=== PATIENT | male | born 1945 | race Hispanic/Latino ===

== ENCOUNTER 2017-09-29 10:32 | Observation (INO) | payer MEDICARE ==
[2017-09-29] MEDS ORDERED: Aspirin 325 mg EC Tablets PO STA (11:56)
[2017-09-29] MEDS ORDERED: Aspirin 325 mg EC Tablets PO ONE (12:04)
[2017-09-29 12:07] LABS: BASO # 0.1 K/uL (0.0-0.2); BASO % 1.2 % (0.0-2.0); EOS # 0.2 K/uL (0.0-0.7); EOS % 2.9 % (0.0-4.0); HEMATOCRIT 38.5 % (35.0-51.0); LYMPH # 1.6 K/uL (1.0-4.3); MEAN CELL VOLUME 87.6 fL (80.0-94.0); MEAN CORPUSCULAR HEMOGLOBIN 30.5 pg (27.0-31.0); MEAN CORPUSCULAR HGB CONC 34.8 g/dL (33.0-37.0); MEAN PLATELET VOLUME 8.1 fL (7.2-11.7); MONO # 0.7 K/uL (0.0-0.8); NRBC % 0.1 % (0.0-2.0); RED CELL DISTRIBUTION WIDTH 13.7 % (11.5-14.5); WHITE BLOOD COUNT 7.6 K/uL (4.8-10.8)
[2017-09-29 12:21] LABS: ALKALINE PHOSPHATASE 74 U/L (38-126); ALT/SGPT 36 U/L (21-72); AST/SGOT 24 U/L (17-59); BILIRUBIN,TOTAL 0.8 mg/dL (0.2-1.3); BLOOD UREA NITROGEN 19 mg/dL (9-20); CALCIUM 8.6 mg/dl (8.6-10.4); CARBON DIOXIDE 23 mmol/L (22-30); CHLORIDE 103 mmol/L (98-107); GFR AFRICAN-AMERICAN > 60; GLUCOSE,RANDOM 107 mg/dL (75-110); POTASSIUM 3.6 mmol/L (3.6-5.2); SODIUM 135 mmol/L (132-148); TOTAL PROTEIN 6.2 g/dL (6.3-8.3)
[2017-09-29 12:22] LABS: ALB/GLOB RATIO 1.8 (1.0-2.1)
--- NOTE | 2017-09-29 13:03 | C.PDOC ---
History Of Present Illness 72-year-old male, presents to the emergency department with complaints of chest discomfort for the past few days. Pain is non-radiating and intermittent in nature. States he was seen by his nut packer on 09/23. Denies nausea/vomiting , numbness/weakness, tingling, fevers, shortness of breath, or any other associated symptoms. No other complaints at this time. Time Seen by Provider: 09/29/17 11:18 Chief Complaint (Nursing): Chest Pain History Per: Patient History/Exam Limitations: no limitations Past Medical History Reviewed: Historical Data, Nursing Documentation, Vital Signs Vital Signs: Last Vital Signs Temp 87 F L 09/29/17 10:39 Pulse 63 09/29/17 12:05 Resp 10 L 09/29/17 12:05 BP 112/69 09/29/17 12:06 Pulse Ox 96 09/29/17 13:23 - Medical History PMH: HTN, Hypercholesterolemia, Sleep Apnea Family History: States: No Known Family Hx - Social History Hx Alcohol Use: No Hx Substance Use: No - Immunization History Hx Tetanus Toxoid Vaccination: No Hx Influenza Vaccination: No Hx Pneumococcal Vaccination: No Review Of Systems Except As Marked, All Systems Reviewed And Found Negative. Constitutional: Negative for: Fever, Chills Cardiovascular: Positive for: Chest Pain. Negative for: Palpitations Respiratory: Negative for: Shortness of Breath Gastrointestinal: Negative for: Nausea, Vomiting Musculoskeletal: Negative for: Back Pain Neurological: Negative for: Weakness, Numbness, Headache, Dizziness Physical Exam - Physical Exam Appears: Non-toxic, No Acute Distress Skin: Warm, Dry, No Rash Nose: Normal Oral Mucosa: Moist Lips: Normal Appearing Neck: Normal ROM Chest: Symmetrical Cardiovascular: Rhythm Regular, No Murmur Respiratory: Normal Breath Sounds, No Accessory Muscle Use Gastrointestinal/Abdominal: Soft, No Tenderness Extremity: Normal ROM Neurological/Psych: Oriented x3, Normal Speech ED Course And Treatment - Laboratory Results Result Diagrams: 09/29/17 12:02 09/29/17 12:02 O2 Sat by Pulse Oximetry: 96 (on RA) Pulse Ox Interpretation: Normal Medical Decision Making Medical Decision Making: Plan: * EKG * Labs * Aspirin, Nitro * Reassess and Disposition Disposition - Disposition Forms: [employer] ([place]ican) - Scribe Statement The provider has reviewed the documentation as recorded by the Scribe (Madhu Gallegos) All medical record entries made by the Rayaibann marie were at my direction and personally dictated by me. I have reviewed the chart and agree that the record accurately reflects my personal performance of the history, physical exam, medical decision making, and the department course for this patient. I have also personally directed, reviewed, and agree with the discharge instructions and disposition.
--- NOTE | 2017-09-29 13:52 | C.PDOC ---
History Of Present Illness 72-year-old male, presents to the emergency department with complaints of chest discomfort for the past few days. Pain is non-radiating and intermittent in nature. States he was seen by his medical sonographer on 09/23, but the symptoms continued since then. Denies nausea/vomiting, numbness/weakness, tingling, fevers, shortness of breath, or any other associated symptoms. No other complaints at this time. Time Seen by Provider: 09/29/17 11:18 Chief Complaint (Nursing): Chest Pain History Per: Patient History/Exam Limitations: no limitations Onset/Duration Of Symptoms: Days Current Symptoms Are (Timing): Still Present Severity: Moderate Exacerbating Factors: None Recent travel outside of the [place]: No Past Medical History Reviewed: Historical Data, Nursing Documentation, Vital Signs Vital Signs: Last Vital Signs Temp 87 F L 09/29/17 10:39 Pulse 49 L 09/29/17 14:22 Resp 17 09/29/17 14:22 BP 121/73 09/29/17 14:22 Pulse Ox 99 09/29/17 14:22 - Medical History PMH: HTN, Hypercholesterolemia, Sleep Apnea Family History: States: No Known Family Hx - Social History Hx Alcohol Use: No Hx Substance Use: No - Immunization History Hx Tetanus Toxoid Vaccination: No Hx Influenza Vaccination: No Hx Pneumococcal Vaccination: No Review Of Systems Except As Marked, All Systems Reviewed And Found Negative. Constitutional: Negative for: Fever, Chills Cardiovascular: Positive for: Chest Pain. Negative for: Palpitations Respiratory: Negative for: Shortness of Breath Gastrointestinal: Negative for: Nausea, Vomiting Musculoskeletal: Negative for: Back Pain Neurological: Negative for: Weakness, Numbness, Headache, Dizziness Physical Exam - Physical Exam Appears: Non-toxic, No Acute Distress Skin: Warm, Dry, No Rash Head: Atraumatic, Normacephalic Eye(s): bilateral: Normal Inspection, PERRL, EOMI Nose: Normal Oral Mucosa: Moist Lips: Normal Appearing Throat: No Erythema, No Exudate Neck: Normal ROM, Supple Chest: Symmetrical, No Deformity, No Tenderness Cardiovascular: Rhythm Regular, No Friction Rub, No Murmur Respiratory: Normal Breath Sounds, No Accessory Muscle Use, No Rales, No Rhonchi , No Wheezing Gastrointestinal/Abdominal: Soft, No Tenderness Back: Normal Inspection, No CVA Tenderness, No Vertebral Tenderness Extremity: Normal ROM, No Swelling Neurological/Psych: Oriented x3, Normal Speech, Normal Motor, Normal Sensation Gait: Steady ED Course And Treatment - Laboratory Results Result Diagrams: 09/29/17 12:02 09/29/17 12:02 ECG: Interpreted By Me ECG Rhythm: Sinus Rhythm, Sinus Bradycardia ECG Interpretation: Normal Rate From EC O2 Sat by Pulse Oximetry: 96 (on RA) Pulse Ox Interpretation: Normal - Radiology CXR: Interpreted by Me CXR Interpretation: Yes: No Acute Disease. No: Infiltrates Medical Decision Making Medical Decision Making: Plan: EKG Labs Aspirin, Nitro Reassess and Disposition On re-exam the patient reports that the chest pain continues. Nitro paste ordered. The case was discussed with Dr. Freed who states he agrees to consult on the patient and to admit to the hospitalist. Disposition - Disposition Disposition: HOSPITALIZED Disposition Time: 14:30 Condition: FAIR - POA Present On Arrival: None - Clinical Impression Clinical Impression: Chest pain - Scribe Statement The provider has reviewed the documentation as recorded by the Scribe (Jovany Gallegos) All medical record entries made by the Scribe were at my direction and personally dictated by me. I have reviewed the chart and agree that the record accurately reflects my personal performance of the history, physical exam, medical decision making, and the department course for this patient. I have also personally directed, reviewed, and agree with the discharge instructions and disposition.
[2017-09-29] MEDS ORDERED: Nitroglycerin 2% Ointment Foilpak UD TOP STA (13:54)
[2017-09-29] MEDS ORDERED: Nitroglycerin 2% Ointment Foilpak UD TOP ONE (14:22)
[2017-09-29] MEDS ORDERED: Oxycodone/Acetaminophen 5/325 mg Tab PO PRN (14:27)
--- NOTE | 2017-09-29 16:15 | CP.PCM.HP ---
History of Present Illness - History of Present Illness History of Present Illness: CC: Chest pain which has now resolved This is a 72yo M w/ a PMhx of CAD and stents placed in the past, HTN, DM, HLD who states he had left sided chest pain, that was under his ribs on the left side that did not radiate anywhere. He has had this pain for one week. Also states he has a slight cough for the past week as well that is non productive and seems to be related to the weather every year. Does not cough up blood. He states he took nitro that did not relieve the pain so he decided to come into the hospital. He denied all other symptoms; denied radiation of the pain, SOB, N /V/D, dysuria/freq/urg, or lower extremity pain/swelling or fevers/chills. No sick contacts. No recent travel including long periods of sitting/flying. 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 Present on Admission - Present on Admission Any Indicators Present on Admission: No History of DVT/PE: No History of Uncontrolled Diabetes: No Urinary Catheter: No Decubitus Ulcer Present: No Review of Systems - Constitutional Constitutional: As Per HPI Past Patient History - Past Social History Smoking Status: Former Smoker - CARDIAC Hx Hypercholesterolemia: Yes Hx Hypertension: Yes - PULMONARY Hx Sleep Apnea: Yes - PSYCHIATRIC Hx Substance Use: No - SURGICAL HISTORY Other/Comment: coronary stent x 1 Meds Allergies/Adverse Reactions: Allergies Allergy/AdvReac Type Severity Reaction Status Date / Time No Known Allergies Allergy Unverified 09/29/17 10:38 Physical Exam - Constitutional Appears: Well, Non-toxic - Head Exam Head Exam: ATRAUMATIC - Eye Exam Eye Exam: EOMI - ENT Exam ENT Exam: Mucous Membranes Moist - Neck Exam Neck exam: Positive for: Full Rom. Negative for: Lymphadenopathy - Respiratory Exam Respiratory Exam: Clear to Auscultation Bilateral, NORMAL BREATHING PATTERN. absent: Rales, Rhonchi, Wheezes Results - Vital Signs Recent Vital Signs: Last Vital Signs Temp 87 F L 09/29/17 10:39 Pulse 49 L 11/26/17 14:22 Resp 17 09/29/17 14:22 BP 121/73 09/29/17 14:22 Pulse Ox 99 09/29/17 14:22 - Labs Result Diagrams: 09/29/17 12:02 09/29/17 12:02 Labs: Laboratory Results - last 24 hr 09/29/17 09/29/17 09/29/17 12:02 12:02 12:02 WBC 7.6 RBC 4.40 Hgb 13.4 Hct 38.5 MCV 87.6 MCH 30.5 MCHC 34.8 RDW 13.7 Plt Count 205 MPV 8.1 Neut % (Auto) 65.9 Lymph % (Auto) 21.0 [place] % (Auto) 9.0 Eos % (Auto) 2.9 Baso % (Auto) 1.2 Neut # 5.0 Lymph # 1.6 [place] # 0.7 Eos # 0.2 Baso # 0.1 PT 11.8 INR 1.0 APTT 32 Sodium 135 Potassium 3.6 Chloride 103 Carbon Dioxide 23 Anion Gap 13 BUN 19 Creatinine 0.7 L Est GFR ( Amer) > 60 Est GFR (Non-Af Amer) > 60 Random Glucose 107 Calcium 8.6 Total Bilirubin 0.8 AST 24 ALT 36 Alkaline Phosphatase 74 Troponin I < 0.0120 NT-Pro-B Natriuret Pep 118 Total Protein 6.2 L Albumin 4.0 Globulin 2.2 Albumin/Globulin Ratio 1.8 Assessment & Plan - Assessment and Plan (Free Text) Assessment: 72M w/ multiple risk factors admitted to telemetry for observation Chest pain r/o ACS -inital LIZETH negative; will f/u with 2 more Q6H -Telemetry monitoring -EKG did not show ST segment elevations/depressions -patient will get echo in morning -Dr. Chaudhari;cardiology, f/u recs HTN -c/w home meds; Amlodipine 5mg daily HLD c/w home meds; lipitor 10mg HS CAD w/ stents c/w plavix aspirin Proph Pepcid Lovenox SC Heart Healthy Diet Case discussed with Dr. Davis Decision To Admit - Pt Status Changed To: Hospital Disposition Of: Observation - . Bed Request Type: Telemetry Admitting Physician: Erick Davis
--- NOTE | 2017-09-29 17:08 | RAD ---
PROCEDURE: CHEST RADIOGRAPH, 1 VIEW HISTORY: chest pain COMPARISON: Comparison chest dated 06/29/2015 FINDINGS: LUNGS: Clear. PLEURA: No pneumothorax or pleural fluid seen. CARDIOVASCULAR: Normal. OSSEOUS STRUCTURES: Mild degenerative changes right acromioclavicular joint VISUALIZED UPPER ABDOMEN: Normal. OTHER FINDINGS: None. IMPRESSION: No active disease.
--- NOTE | 2017-09-30 01:50 | CON ---
CARDIOLOGY CONSULTATION REASON FOR CONSULTATION: Chest pain. HISTORY OF PRESENT ILLNESS: The patient is a 72-year-old white male who has a history of coronary artery disease, underwent coronary stenting some 12 years ago at [facility] in [place] . The patient had no cardiac issue since then and is following with the Dr. Freed as an outpatient. He presented because of chest discomfort on the left side that he is unable to describe and he said it could be indigestion, however, because of his concerns about his heart, he presented to the emergency room. The patient denies any associated diaphoresis or shortness of breath. SOCIAL HISTORY: The patient is a former smoker. MEDICATIONS: Crestor 20 mg once a day, aspirin 81 mg once a day, Lovenox 40 mg once a day, Norvasc 5 mg once a day, Plavix 75 mg once a day, Zofran 4 mg q.6 hours p.r.n. REVIEW OF SYSTEMS: No fever or chills. No dizziness or syncope. No hematemesis or melena. PHYSICAL EXAMINATION: GENERAL: The patient is an elderly male, who does not appear to be in any distress. VITAL SIGNS: Blood pressure 121/73, heart rate 49, temperature 97, respirations 17. HEENT: Normocephalic. NECK: No JVD. CHEST: Clear. HEART: S1 and S2 regular. ABDOMEN: Soft. EXTREMITIES: No edema. EKG revealed sinus bradycardia, rate of 58, nonspecific ST-T wave changes, LABORATORY DATA: SMA-7 is within normal limits except for creatinine 0.7. One set of troponin is negative. PT, PTT and INR are within normal limits. CBC is entirely within normal limits. Chest x-ray was unremarkable. ASSESSMENT: 1. Chest pain, rule out myocardial infarction. 2. Hypertension. 3. Mild sinus bradycardia. RECOMMENDATIONS: Continue Plavix 75 mg once a day, Crestor 20 mg once a day, Norvasc 5 mg once a day. The patient did receive aspirin as a stat dose 325 mg in the emergency room. Monitor the EKGs and serial cardiac enzymes, obtain an echocardiogram. Nicholas Cameron MD [facility] # [id number]
[2017-09-30 02:01] LABS: BASO # 0.1 K/uL (0.0-0.2); BASO % 0.9 % (0.0-2.0); EOS # 0.4 K/uL (0.0-0.7); EOS % 3.6 % (0.0-4.0); LYMPH % 20.2 % (20.0-40.0); MEAN CELL VOLUME 88.2 fL (80.0-94.0); MEAN CORPUSCULAR HEMOGLOBIN 30.6 pg (27.0-31.0); MEAN CORPUSCULAR HGB CONC 34.7 g/dL (33.0-37.0); MEAN PLATELET VOLUME 8.1 fL (7.2-11.7); MONO # 1.2 K/uL (0.0-0.8); MONO % 12.3 % (0.0-10.0); NRBC % 0.1 % (0.0-2.0); RED CELL DISTRIBUTION WIDTH 13.9 % (11.5-14.5)
[2017-09-30 02:15] LABS: POTASSIUM 3.1 mmol/L (3.6-5.2)
[2017-09-30 02:44] LABS: THYROID STIMULATING HORMONE 2.75 mIU/L (0.46-4.68)
[2017-09-30 02:51] LABS: ALB/GLOB RATIO 1.1 (1.0-2.1); ALKALINE PHOSPHATASE 61 U/L (38-126); ALT/SGPT 38 U/L (21-72); AST/SGOT 23 U/L (17-59); BILIRUBIN,TOTAL 0.4 mg/dL (0.2-1.3); BLOOD UREA NITROGEN 21 mg/dL (9-20); CALCIUM 8.1 mg/dl (8.6-10.4); CARBON DIOXIDE 22 mmol/L (22-30); CHLORIDE 106 mmol/L (98-107); CHOLESTEROL 86 mg/dL (0-199); GFR AFRICAN-AMERICAN > 60; GLUCOSE,RANDOM 86 mg/dL (75-110); SODIUM 138 mmol/L (132-148); TOTAL PROTEIN 6.8 g/dL (6.3-8.3)
--- NOTE | 2017-09-30 07:30 | CP.PCM.PN ---
<Maggie Traylor - Last Filed: 09/30/17 13:20> Subjective - Date & Time of Evaluation Date of Evaluation: 09/30/17 Time of Evaluation: 07:30 - Subjective Subjective: Medicine Progress Note for Dr. Caldwell Patient was seen and examined at bedside in no acute distress. Patient reports having the same chest pain he came in with and describes it as indigestion like , hot, burning, in his left chest. He says its non reproducible and does not change with position. He reports having normal bowel movements. Patent denies having shortness of breath, abdominal pain, nausea, vomiting, fevers, headaches , and dysuria. Objective - Vital Signs/Intake and Output Vital Signs (last 24 hours): Temp Pulse Resp BP Pulse Ox 98.7 F 54 L 16 119/78 97 09/29/17 19:25 09/30/17 05:45 09/30/17 05:45 09/30/17 05:45 09/30/17 05:45 - Medications Medications: Current Medications Acetaminophen (Tylenol 325mg Tab) 650 mg PO Q6 PRN PRN Reason: Fever >100.4 F Amlodipine Besylate (Norvasc) 5 mg PO DAILY [facility] Aspirin (Ecotrin) 81 mg PO DAILY [facility] Clopidogrel Bisulfate (Plavix) 75 mg PO DAILY [facility] Enoxaparin Sodium (Lovenox) 40 mg SC DAILY [facility] Famotidine (Pepcid) 20 mg PO BID [facility] Ondansetron HCl (Zofran Inj) 4 mg IVP Q6 PRN PRN Reason: Nausea/Vomiting Oxycodone/Acetaminophen (Percocet 5/325 Mg Tab) 1 tab PO Q4 PRN PRN Reason: Pain, severe (8-10) Stop: 10/02/17 14:28 Rosuvastatin Calcium (Crestor) 10 mg PO HS [facility] Last Admin: 09/29/17 21:27 Dose: 10 mg - Labs Labs: 09/30/17 01:55 09/30/17 01:55 PT 11.8 SECONDS (9.7-12.2) 09/29/17 12:02 INR 1.0 09/29/17 12:02 APTT 32 SECONDS (21-34) 09/29/17 12:02 - Constitutional Appears: No Acute Distress - Head Exam Head Exam: ATRAUMATIC, NORMAL INSPECTION - Eye Exam Eye Exam: EOMI, Normal appearance - Respiratory Exam Respiratory Exam: Clear to Ausculation Bilateral, NORMAL BREATHING PATTERN. absent: Rales, Rhonchi, Wheezes, Respiratory Distress - Cardiovascular Exam Cardiovascular Exam: REGULAR RHYTHM, +S1, +S2 - GI/Abdominal Exam GI & Abdominal Exam: Soft, Normal Bowel Sounds. absent: Distended, Firm, Guarding, Tenderness - Extremities Exam Extremities Exam: Normal Inspection. absent: Calf Tenderness, Pedal Edema, Tenderness - Back Exam Additional comments: Lipoma on left lateral back - Neurological Exam Neurological Exam: Alert, Awake, Oriented x3 - Psychiatric Exam Psychiatric exam: Normal Affect, Normal Mood - Skin Skin Exam: Dry, Intact, Normal Color, Warm Assessment and Plan (1) Chest pain Status: Acute (2) HTN (hypertension) Status: Acute (3) HLD (hyperlipidemia) Status: Acute (4) Presence of stent in coronary artery in patient with coronary artery disease Status: Acute (5) Prophylactic measure Status: Acute - Assessment and Plan (Free Text) Plan: (1) Chest pain Assessment and Plan: * LIZETH x3 negative * Telemetry monitoring * EKG did not show ST segment elevations/depressions * Echo ordered: (unofficial report-- EF 82%); f/u official report * Cardiology, Dr. 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 Freed (2) HTN (hypertension) Assessment and Plan: * Continue home medication: Amlodipine 5mg daily (3) HLD (hyperlipidemia) Assessment and Plan: * Continue home medication: Lipitor 10mg HS (4) Presence of stent in coronary artery in patient with coronary artery disease Assessment and Plan: * Continue Plavix and Aspirin (5) Prophylactic measure Assessment and Plan: * Pepcid * Lovenox SC * Heart Healthy Diet, Consistent Carb <Lupillo Caldwell H - Last Filed: 09/30/17 15:50> Objective - Vital Signs/Intake and Output Vital Signs (last 24 hours): Temp Pulse Resp BP Pulse Ox 97.9 F 51 L 18 128/68 98 09/30/17 14:10 09/30/17 14:10 09/30/17 14:10 09/30/17 14:10 09/30/17 14:10 - Medications Medications: Current Medications Acetaminophen (Tylenol 325mg Tab) 650 mg PO Q6 PRN PRN Reason: Fever >100.4 F Amlodipine Besylate (Norvasc) 5 mg PO DAILY [facility] Last Admin: 09/30/17 11:43 Dose: 5 mg Aspirin (Ecotrin) 81 mg PO DAILY [facility] Last Admin: 09/30/17 11:43 Dose: 81 mg Clopidogrel Bisulfate (Plavix) 75 mg PO DAILY [facility] Last Admin: 09/30/17 11:43 Dose: 75 mg Enoxaparin Sodium (Lovenox) 40 mg SC DAILY [facility] Last Admin: 09/30/17 11:43 Dose: 40 mg Famotidine (Pepcid) 20 mg PO BID [facility] Last Admin: 09/30/17 11:43 Dose: 20 mg Ondansetron HCl (Zofran Inj) 4 mg IVP Q6 PRN PRN Reason: Nausea/Vomiting Oxycodone/Acetaminophen (Percocet 5/325 Mg Tab) 1 tab PO Q4 PRN PRN Reason: Pain, severe (8-10) Stop: 10/02/17 14:28 Pneumococcal Polyvalent Vaccine (Pneumovax 23 Vaccine) 0.5 ml IM .ONCE ONE Stop: 10/01/17 10:01 Rosuvastatin Calcium (Crestor) 10 mg PO HS [facility] Last Admin: 09/29/17 21:27 Dose: 10 mg - Labs Labs: 09/30/17 01:55 09/30/17 01:55 PT 11.8 SECONDS (9.7-12.2) 09/29/17 12:02 INR 1.0 09/29/17 12:02 APTT 32 SECONDS (21-34) 09/29/17 12:02 Attending/Attestation - Attestation I have personally seen and examined this patient.: Yes I have fully participated in the care of the patient.: Yes I have reviewed all pertinent clinical information, including history, physical exam and plan: Yes Notes (Text): 09/30/17 15:50 Medical attending: Patient was seen and examined by me, agrees the above note by medical health researcher. When we saw the patient he was still in the emergency room. He already had 3 cardiac enzymes are negative. I took a look at the EKG and that the sinus bradycardia. It did not have any ST elevation or ST depression. The patient explained that he still had sensation of chest discomfort he described it as a squeezing-like sensation over his left chest. He wasn't sure if this was a muscle spasm or some sort of indigestion. He explained to me on exam that it was not reproducible. He does have a history of CAD, as well as a history of GA sometime in the distant past. He is on aspirin and Plavix at home which are being continued while he's here. At this moment were waiting on echo to be done if he does okay on telemetry we' ll probably discharge him relatively soon Thank you very much, Lupillo Caldwell
[2017-09-30] MEDS ORDERED: Enoxaparin 40 mg Syringe SC SCH (10:00)
[2017-09-30] MEDS ORDERED: Potassium Chloride 20 mEq ER Tab PO ONE ×2 (10:07→11:29)
[2017-09-30 14:23] VITALS: O2SAT 98
--- NOTE | 2017-09-30 14:41 | PN ---
DATE: SUBJECTIVE: The patient denies any recurrence of chest pain. No reported ventricular arrhythmia. PHYSICAL EXAMINATION: VITAL SIGNS: Blood pressure 110/80, heart rate 52, temperature 98, respirations 18. HEENT: Normocephalic. CHEST: Clear. HEART: S1 and S2 regular. ABDOMEN: Soft. EXTREMITIES: There is no edema. LABORATORY DATA: Today's SMA-7 is within normal limit except for potassium of 3.1 and BUN of 21. Total 3 troponins are negative. Hemoglobin, hematocrit, white count and platelet count today are within normal limit. ASSESSMENT: 1. Chest pain. Myocardial infarction is ruled out. 2. Sinus bradycardia. 3. Hypokalemia. RECOMMENDATIONS: Continue Crestor 10 mg once a day, aspirin 81 mg once a day, Lovenox is 40 mg subcutaneously once a day, Plavix 75 mg once a day. The patient did receive K-Dur 40 mEq orally today. I will follow the echocardiography study that was performed today. Nicholas Cameron MD
[2017-09-30 16:15] VITALS: BP 131/73; RESP 20; TEMP 97.6
--- NOTE | 2017-09-30 17:12 | CP.PCM.DIS ---
<Maggie Traylor - Last Filed: 09/30/17 17:19> Provider - Provider Date of Admission: 09/29/17 13:54 Attending physician: Lupillo Caldwell DO Primary care physician: Dr. Valle Time Spent in preparation of Discharge (in minutes): 45 Diagnosis - Discharge Diagnosis (1) Chest pain Status: Acute (2) HTN (hypertension) Status: Acute (3) HLD (hyperlipidemia) Status: Acute (4) Presence of stent in coronary artery in patient with coronary artery disease Status: Acute (5) Prophylactic measure Status: Acute Hospital Course - Lab Results Lab Results: Most Recent Lab Values WBC 10.0 K/uL (4.8-10.8) 09/30/17 01:55 RBC 4.19 Mil/uL (4.40-5.90) L 09/30/17 01:55 Hgb 12.8 g/dL (12.0-18.0) 09/30/17 01:55 Hct 37.0 % (35.0-51.0) 09/30/17 01:55 MCV 88.2 fL (80.0-94.0) 09/30/17 01:55 MCH 30.6 pg (27.0-31.0) 09/30/17 01:55 MCHC 34.7 g/dL (33.0-37.0) 09/30/17 01:55 RDW 13.9 % (11.5-14.5) 09/30/17 01:55 Plt Count 185 K/uL (130-400) 09/30/17 01:55 MPV 8.1 fL (7.2-11.7) 09/30/17 01:55 Neut % (Auto) 63.0 % (50.0-75.0) 09/30/17 01:55 Lymph % (Auto) 20.2 % (20.0-40.0) 09/30/17 01:55 [place] % (Auto) 12.3 % (0.0-10.0) H 09/30/17 01:55 Eos % (Auto) 3.6 % (0.0-4.0) 09/30/17 01:55 Baso % (Auto) 0.9 % (0.0-2.0) 09/30/17 01:55 Neut # 6.3 K/uL (1.8-7.0) 09/30/17 01:55 Lymph # 2.0 K/uL (1.0-4.3) 09/30/17 01:55 [place] # 1.2 K/uL (0.0-0.8) H 09/30/17 01:55 Eos # 0.4 K/uL (0.0-0.7) 09/30/17 01:55 Baso # 0.1 K/uL (0.0-0.2) 09/30/17 01:55 PT 11.8 SECONDS (9.7-12.2) 09/29/17 12:02 INR 1.0 09/29/17 12:02 APTT 32 SECONDS (21-34) 09/29/17 12:02 Sodium 138 mmol/L (132-148) 09/30/17 01:55 Potassium 3.1 mmol/L (3.6-5.2) L 09/30/17 01:55 Chloride 106 mmol/L (98-107) 09/30/17 01:55 Carbon Dioxide 22 mmol/L (22-30) 09/30/17 01:55 Anion Gap 13 (10-20) 09/30/17 01:55 BUN 21 mg/dL (9-20) H 09/30/17 01:55 Creatinine 0.8 mg/dL (0.8-1.5) 09/30/17 01:55 Est GFR ( Amer) > 60 09/30/17 01:55 Est GFR (Non-Af Amer) > 60 09/30/17 01:55 POC Glucose (mg/dL) 69 mg/dL (65-110) 09/30/17 16:34 Random Glucose 86 mg/dL (75-110) 09/30/17 01:55 Hemoglobin A1c 5.7 % (4.2-6.5) 09/30/17 01:55 Calcium 8.1 mg/dl (8.6-10.4) L 09/30/17 01:55 Total Bilirubin 0.4 mg/dL (0.2-1.3) 09/30/17 01:55 AST 23 U/L (17-59) 09/30/17 01:55 ALT 38 U/L (21-72) 09/30/17 01:55 Alkaline Phosphatase 61 U/L (38-126) 09/30/17 01:55 Total Creatine Kinase 62 U/L (55-170) 09/30/17 01:55 CK-MB (Mass) 1.20 ng/mL (0.0-3.38) 09/30/17 01:55 Troponin I < 0.0120 ng/mL (0.00-0.120) 09/30/17 01:55 NT-Pro-B Natriuret Pep 118 pg/mL (0-900) 09/29/17 12:02 Total Protein 6.8 g/dL (6.3-8.3) 09/30/17 01:55 Albumin 3.6 g/dL (3.5-5.0) 09/30/17 01:55 Globulin 3.2 gm/dL (2.2-3.9) 09/30/17 01:55 Albumin/Globulin Ratio 1.1 (1.0-2.1) 09/30/17 01:55 Triglycerides 97 mg/dL (0-149) 09/30/17 01:55 Cholesterol 86 mg/dL (0-199) 09/30/17 01:55 LDL Cholesterol Direct 47 mg/dL (0-129) 09/30/17 01:55 HDL Cholesterol 28 mg/dL (30-70) L 09/30/17 01:55 Free T4 0.80 ng/dL (0.78-2.19) 09/30/17 01:55 TSH 3rd Generation 2.75 mIU/L (0.46-4.68) 09/30/17 01:55 - Hospital Course Hospital Course: CC: Chest pain which has now resolved HPI: This is a 72yo M w/ a PMhx of CAD and stents placed in the past, HTN, DM, HLD who states he had left sided chest pain, that was under his ribs on the left side that did not radiate anywhere. He has had this pain for one week. Also states he has a slight cough for the past week as well that is non productive and seems to be related to the weather every year. Does not cough up blood. He states he took nitro that did not relieve the pain so he decided to come into the hospital. He denied all other symptoms; denied radiation of the pain, SOB, N/V/D, dysuria/freq/urg, or lower extremity pain/swelling or fevers/ chills. No sick contacts. No recent travel including long periods of sitting/ flying. 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 Patient was placed on telemetry, given aspirin and nitroglycerin, labs were drawn, EKG and Echo were ordered. Cardiology, Dr. Cameron, was consulted. Cardiac enzymes were negative times three. EKG showed bradycardia, but no ST changes. Chest xray showed no active disease. Patient's home medications for hypertension, hyperlipidemia, and history of CAD with stents were resumed. Patient was found to be hypokalemic and was given potassium. Patient was seen and examined at bedside in no acute distress. Patient is stable for discharge to home. Patient must continue taking his home medications. Patient must follow up with their PMD and wire winder within one week of discharge. This is a brief summary of the hospital course. Please see EMR for more information. Discharge Exam - Additional Findings Additional findings: - Constitutional Appears: No Acute Distress - Head Exam Head Exam: ATRAUMATIC, NORMAL INSPECTION - Eye Exam Eye Exam: EOMI, Normal appearance - Respiratory Exam Respiratory Exam: Clear to Ausculation Bilateral, NORMAL BREATHING PATTERN. absent: Rales, Rhonchi, Wheezes, Respiratory Distress - Cardiovascular Exam Cardiovascular Exam: REGULAR RHYTHM, +S1, +S2 - GI/Abdominal Exam GI & Abdominal Exam: Soft, Normal Bowel Sounds. absent: Distended, Firm, Guarding, Tenderness - Extremities Exam Extremities Exam: Normal Inspection. absent: Calf Tenderness, Pedal Edema, Tenderness - Back Exam Additional comments: Lipoma on left lateral back - Neurological Exam Neurological Exam: Alert, Awake, Oriented x3 - Psychiatric Exam Psychiatric exam: Normal Affect, Normal Mood - Skin Skin Exam: Dry, Intact, Normal Color, Warm Discharge Plan - Follow Up Plan Condition: FAIR Disposition: HOME/ ROUTINE Instructions: Chest Pain (DC), Chronic Hypertension (DC) Additional Instructions: Patient is stable for discharge to home. Patient must continue home medications. Patient must follow up as outpatient with their wire winder, Dr. Freed, and their PM, Dr. Valle, within one week of discharge. If symptoms reoccur or worsen, patient should return to the ED. <Lupillo Caldwell - Last Filed: 09/30/17 18:41> Provider - Provider Date of Admission: 09/29/17 13:54 Attending physician: Lupillo Caldwell DO Hospital Course - Lab Results Lab Results: Most Recent Lab Values WBC 10.0 K/uL (4.8-10.8) 09/30/17 01:55 RBC 4.19 Mil/uL (4.40-5.90) L 09/30/17 01:55 Hgb 12.8 g/dL (12.0-18.0) 09/30/17 01:55 Hct 37.0 % (35.0-51.0) 09/30/17 01:55 MCV 88.2 fL (80.0-94.0) 09/30/17 01:55 MCH 30.6 pg (27.0-31.0) 09/30/17 01:55 MCHC 34.7 g/dL (33.0-37.0) 09/30/17 01:55 RDW 13.9 % (11.5-14.5) 09/30/17 01:55 Plt Count 185 K/uL (130-400) 09/30/17 01:55 MPV 8.1 fL (7.2-11.7) 09/30/17 01:55 Neut % (Auto) 63.0 % (50.0-75.0) 09/30/17 01:55 Lymph % (Auto) 20.2 % (20.0-40.0) 09/30/17 01:55 [place] % (Auto) 12.3 % (0.0-10.0) H 09/30/17 01:55 Eos % (Auto) 3.6 % (0.0-4.0) 09/30/17 01:55 Baso % (Auto) 0.9 % (0.0-2.0) 09/30/17 01:55 Neut # 6.3 K/uL (1.8-7.0) 09/30/17 01:55 Lymph # 2.0 K/uL (1.0-4.3) 09/30/17 01:55 [place] # 1.2 K/uL (0.0-0.8) H 09/30/17 01:55 Eos # 0.4 K/uL (0.0-0.7) 09/30/17 01:55 Baso # 0.1 K/uL (0.0-0.2) 09/30/17 01:55 PT 11.8 SECONDS (9.7-12.2) 09/29/17 12:02 INR 1.0 09/29/17 12:02 APTT 32 SECONDS (21-34) 09/29/17 12:02 Sodium 138 mmol/L (132-148) 09/30/17 01:55 Potassium 3.1 mmol/L (3.6-5.2) L 09/30/17 01:55 Chloride 106 mmol/L (98-107) 09/30/17 01:55 Carbon Dioxide 22 mmol/L (22-30) 09/30/17 01:55 Anion Gap 13 (10-20) 09/30/17 01:55 BUN 21 mg/dL (9-20) H 09/30/17 01:55 Creatinine 0.8 mg/dL (0.8-1.5) 09/30/17 01:55 Est GFR ( Amer) > 60 09/30/17 01:55 Est GFR (Non-Af Amer) > 60 09/30/17 01:55 POC Glucose (mg/dL) 84 mg/dL (65-110) 09/30/17 17:07 Random Glucose 86 mg/dL (75-110) 09/30/17 01:55 Hemoglobin A1c 5.7 % (4.2-6.5) 09/30/17 01:55 Calcium 8.1 mg/dl (8.6-10.4) L 09/30/17 01:55 Total Bilirubin 0.4 mg/dL (0.2-1.3) 09/30/17 01:55 AST 23 U/L (17-59) 09/30/17 01:55 ALT 38 U/L (21-72) 09/30/17 01:55 Alkaline Phosphatase 61 U/L (38-126) 09/30/17 01:55 Total Creatine Kinase 62 U/L (55-170) 09/30/17 01:55 CK-MB (Mass) 1.20 ng/mL (0.0-3.38) 09/30/17 01:55 Troponin I < 0.0120 ng/mL (0.00-0.120) 09/30/17 01:55 NT-Pro-B Natriuret Pep 118 pg/mL (0-900) 09/29/17 12:02 Total Protein 6.8 g/dL (6.3-8.3) 09/30/17 01:55 Albumin 3.6 g/dL (3.5-5.0) 09/30/17 01:55 Globulin 3.2 gm/dL (2.2-3.9) 09/30/17 01:55 Albumin/Globulin Ratio 1.1 (1.0-2.1) 09/30/17 01:55 Triglycerides 97 mg/dL (0-149) 09/30/17 01:55 Cholesterol 86 mg/dL (0-199) 09/30/17 01:55 LDL Cholesterol Direct 47 mg/dL (0-129) 09/30/17 01:55 HDL Cholesterol 28 mg/dL (30-70) L 09/30/17 01:55 Free T4 0.80 ng/dL (0.78-2.19) 09/30/17 01:55 TSH 3rd Generation 2.75 mIU/L (0.46-4.68) 09/30/17 01:55 Attending/Attestation - Attestation I have personally seen and examined this patient.: Yes I have fully participated in the care of the patient.: Yes I have reviewed all pertinent clinical information, including history, physical exam and plan: Yes Notes (Text): 09/30/17 18:40 Medical attending: Patient was seen and examined by me, agrees the above note by claim review medical director. When we saw him he was not in any acute distress. He denied having shortness of breath, he denied having palpitations, he reported that he still had some chest tightness. This was not reproducible on exam. The patient was still in the emergency room by the time we saw the patient. His cardiac enzymes have been negative 3. I also reviewed his EKG as well, it is sinus bradycardia in the high 50s. He does not have any ST elevations or ST depressions. He also has a echocardiogram that was done as well today. The results of which are not immediately available He is already on aspirin, Plavix, statin at home reported that he had enough medications at home. The patient understands that he needs to follow-up with his primary care physician as well as his outpatient wire winder. Thank you very much, Lupillo Caldwell
--- NOTE | 2017-09-30 17:46 | CARD ---
APPROVED REPORT EKG Measurement Heart [id number] <Conclusion> Sinus bradycardia Nonspecific ST abnormality Abnormal ECG
[2017-09-30] MEDS ORDERED: Pneumococcal 23-Valent Vaccine IM ONE (18:00)
[2017-09-30] MEDS ORDERED: Influenza Vaccine 60 mcg/0.5 mL SYR (4YR UP) IM ONE (18:00)
--- NOTE | 2017-09-30 18:27 | CARD ---
APPROVED REPORT EXAM: Two-dimensional and M-mode echocardiogram with Doppler and color Doppler. Other Information Quality : GoodRhythm : INDICATION Cardiac Disease: CAD Chest Pain CARDIAC STENT RISK FACTORS Hypertension Hyperlipidemia Diabetes 2D DIMENSIONS IVSd1.4 (0.7-1.1cm)LVDd5.0 (3.9-5.9cm) PWd0.9 (0.7-1.1cm)LVDs2.7 (2.5-4.0cm) FS (%) 45.2 %LVEF (%)76.3 (>50%) M-Mode DIMENSIONS RVDd1.76 (2.1-3.2cm)Left Atrium (MM)4.33 (2.5-4.0cm) IVSd1.91 (0.7-1.1cm)Aortic Root3.15 (2.2-3.7cm) LVDd5.51 (4.0-5.6cm)Aortic Cusp Exc.2.46 (1.5-2.0cm) PWd0.90 (0.7-1.1cm)FS (%) 52 % LVDs2.66 (2.0-3.8cm)LVEF (%)82 (>50%) Mitral Valve MV E Hifxamjv30.1cm/sMV A Ofvjcdhw58.6cm/sE/A ratio1.2 TDI E/Lateral E'0.0E/Medial E'0.0 Tricuspid Valve TR Peak [id number]/sTR Peak Gr.[id number] LEFT VENTRICLE The left ventricle is normal size. septum appears thickened as compare to posterior wall.no nate or lvot obstruction noted. The Ejection Fraction is 60-65%. There is normal LV segmental wall motion. The left ventricular diastolic function is normal. RIGHT VENTRICLE The right ventricle is normal size. The right ventricular systolic function is normal. ATRIA The left atrium is mildly dilated. The right atrium size is normal. The interatrial septum is intact with no evidence for an atrial septal defect. AORTIC VALVE The aortic valve is trileaflet. The aortic valve is mildly sclerotic. No aortic regurgitation is present. MITRAL VALVE The mitral valve is normal in structure. Mitral regurgitation is mild. TRICUSPID VALVE The tricuspid valve is normal in structure. There is mild tricuspid regurgitation. Right ventricular systolic pressure is estimated at 36 mmHg. There is mild pulmonary hypertension. PULMONIC VALVE The pulmonary valve is normal in structure. There is mild pulmonic valvular regurgitation. GREAT VESSELS The aortic root is normal size. The IVC is normal in size and collapses >50% with inspiration. PERICARDIAL EFFUSION There is no pericardial effusion. <Conclusion> The left ventricle is normal size. septum appears thickened as compare to posterior wall.no nate or lvot obstruction noted. The Ejection Fraction is 60-65%. The left ventricular diastolic function is normal. The left atrium is mildly dilated. Mitral regurgitation is mild. There is mild tricuspid regurgitation. Right ventricular systolic pressure is estimated at 36 mmHg. There is mild pulmonary hypertension.
[2017-09-30 20:41] VITALS: PULSE 68
[2017-10-01] MEDS ORDERED: Influenza Vaccine 60 mcg/0.5 mL SYR (4YR UP) IM ONE (10:00)
[2017-10-01] MEDS ORDERED: Pneumococcal 23-Valent Vaccine IM ONE (10:00)
== END 2017-09-30 17:55 | disposition home or self-care (01) ==
LOC: C.ER 10:32 → C.9E 13:54 → C.5S 09-30 13:45
PROVIDERS: ADMIT Hospitalist; ATTEND Hospitalist
DX: R07.9 Chest pain, unspecified (principal); I10 Essential (primary) hypertension; E78.5 Hyperlipidemia, unspecified; I25.10 Atherosclerotic heart disease of native coronary artery without angina pectoris; E11.9 Type 2 diabetes mellitus without complications; Z95.5 Presence of coronary angioplasty implant and graft; I25.2 Old myocardial infarction
CPT/HCPCS: 71010; 80053; 80061; 82948; 83036; 83880; 84439; 84443; 84484; 85025; 85610; 85730; 93005; 93306; 96372; 99285; G0378; J1650

== ENCOUNTER 2018-05-08 20:52 | Inpatient (IN) | payer MEDICARE ==
[2018-05-08] MEDS ORDERED: Aspirin 325 mg EC Tablets PO STA (21:19)
--- NOTE | 2018-05-08 21:19 | C.PDOC ---
History Of Present Illness 72 y/o male presents to ED for complaints of not feeling well for the last few weeks. Patient reports complaints of chest pain that radiates to mid back associated with substernal chest discomfort that developed earlier today while he was at home. Denies fever, chills, nausea or vomiting. Patient was screened by ALS and released. Time Seen by Provider: 05/08/18 21:18 Chief Complaint (Nursing): Chest Pain History Per: Patient History/Exam Limitations: no limitations Onset/Duration Of Symptoms: Days Current Symptoms Are (Timing): Still Present Severity: Moderate Pain Scale Rating Of: 4 Modifying Factors: None Exacerbating Factors: None Alleviating Factors: None Recent travel outside of the [place]: No Past Medical History Reviewed: Historical Data, Nursing Documentation, Vital Signs Vital Signs: Last Vital Signs Temp 97.8 F 05/08/18 21:00 Pulse 51 L 05/09/18 05:35 Resp 16 05/09/18 05:35 BP 124/75 05/09/18 04:10 Pulse Ox 99 05/09/18 05:35 - Medical History PMH: HTN, Hypercholesterolemia, Sleep Apnea Surgical History: No Surg Hx Family History: States: No Known Family Hx - Social History Hx Alcohol Use: No Hx Substance Use: No - Immunization History Hx Tetanus Toxoid Vaccination: No Hx Influenza Vaccination: No Hx Pneumococcal Vaccination: No Review Of Systems Constitutional: Negative for: Fever, Chills Cardiovascular: Positive for: Chest Pain (Radiated to mid back ), Other ( Substernal chest discomfort ) Gastrointestinal: Negative for: Nausea, Vomiting, Abdominal Pain, Diarrhea Skin: Negative for: Rash Neurological: Negative for: Weakness, Numbness Psych: Negative for: Anxiety Physical Exam - Physical Exam Appears: Non-toxic, No Acute Distress Skin: Warm, Dry Head: Normacephalic Eye(s): bilateral: Normal Inspection, PERRL Oral Mucosa: Moist Neck: Trachea Midline, Supple Chest: Symmetrical Cardiovascular: Rhythm Regular Respiratory: No Rales, No Rhonchi, No Wheezing Gastrointestinal/Abdominal: Soft, No Tenderness, No Distention Extremity: Normal ROM, No Pedal Edema, No Deformity Extremity: Bilateral: Atraumatic, Normal Color And Temperature, Normal ROM Pulses: Left Dorsalis Pedis: Normal Neurological/Psych: Oriented x3, Normal Speech (Speaking in full sentences ), Other (No focal deficits ) Gait: Steady ED Course And Treatment - Laboratory Results Result Diagrams: 05/08/18 21:14 05/08/18 21:14 ECG: Interpreted By Me, Viewed By Me ECG Rhythm: Sinus Rhythm (57), R BBB, Nonspecific Changes O2 Sat by Pulse Oximetry: 97 (RA) Pulse Ox Interpretation: Normal - Radiology CXR: Interpreted by Me, Viewed By Me CXR Interpretation: No: Infiltrates, Fracture, Pnemothorax - CT Scan/US CT Angiography Chest Other Rad Studies (CT/US): Read By Radiologist, Radiology Report Reviewed CT/US Interpretation: EXAM: CT Angiography Chest With Intravenous Contrast. EXAM DATE/TIME: 05/08/2018 9:19 PM. CLINICAL HISTORY: 72 years old, male; Pain ; Other: Chest; Chest pain; Type not specified. TECHNIQUE: Axial computed tomographic angiography images of the chest with intravenous contrast using CT. angiography protocol. All CT scans at this facility use at least one of these dose optimization techniques: automated. exposure control; mA and/or kV adjustment per patient size (includes targeted exams where dose is. matched to clinical indication); or iterative reconstruction. Coronal and sagittal reformatted images were created and reviewed. MIP reconstructed images were created and reviewed. CONTRAST: 100 ml of visipaque 320 administered intravenously. COMPARISON: No relevant prior studies available. FINDINGS: Pulmonary arteries: Normal. No pulmonary emboli. Aorta: Normal. No aortic aneurysm. No aortic dissection. Lungs: Left lower lobe nodule. Pleural space: Normal. No pneumothorax. No pleural effusion. Heart: Vascular calcifications including coronary artery calcifications. Mediastinum: Small hiatal hernia. Bones/joints: Unremarkable. No acute fracture. Soft tissues: Unremarkable. Lymph nodes: Unremarkable. No enlarged lymph nodes. IMPRESSION: No acute thoracic aortic aneurysm or dissection CT Abdomen & Pelvis Other Rad Studies (CT/US): Read By Radiologist, Radiology Report Reviewed CT/US Interpretation: Normal. No calcified stones. No ductal dilation. Pancreas : Pancreatic atrophy. Spleen: Normal. No splenomegaly. Adrenals: Normal. No mass. Kidneys and ureters: Incompletely characterized renal densities. No hydronephrosis. Stomach and bowel: Prominent fecal retention. Appendix: No evidence of appendicitis. PELVIS: Bladder: Unremarkable as visualized. Reproductive: Prostatomegaly. ABDOMEN and PELVIS: Intraperitoneal space: Normal. No free air. No significant fluid collection. Bones/joints: Degenerative change in the spine. Soft tissues: Small fat containing umbilical hernia. Fat containing inguinal hernias. Vasculature: Separate origins of the celiac and splenic arteries off of the aorta. 2 right and 2 left. renal arteries are noted. Atherosclerosis of the aorta. Mild iliac artery atherosclerosis. Lymph nodes: Normal. No enlarged lymph nodes. IMPRESSION: No acute abdominal aortic dissection or aneurysm. Prominent fecal retention. Progress Note: Administered Aspirin. Ordered blood work, CXR, EKG, CT angio chest/abdomen/ pelvis and angiography disection protocol. Reevaluation Time: 04:30 Reassessment Condition: Improved (no cp, 2nd trop + ekg [id number], rbbb, nsstt changes) Disposition Discussed With Dr.: Ifeoma Hood Comment: accepted the pt on his service and took over the care at Doctor Will See Patient In The: Hospital Counseled Patient/Family Regarding: Studies Performed, Diagnosis - Disposition Referrals: Yoli Arellano MD [Primary Care Provider] - Disposition: HOSPITALIZED Disposition Time: 21:05 Condition: FAIR Forms: [employer] (Latvian) - POA Present On Arrival: None - Clinical Impression Clinical Impression: Chest pain, NSTEMI (non-ST elevated myocardial infarction) - Scribe Statement The provider has reviewed the documentation as recorded by the Scribe Marilyn Marroquin All medical record entries made by the Scribe were at my direction and personally dictated by me. I have reviewed the chart and agree that the record accurately reflects my personal performance of the history, physical exam, medical decision making, and the department course for this patient. I have also personally directed, reviewed, and agree with the discharge instructions and disposition. Decision To Admit - Pt Status Changed To: Hospital Disposition Of: Inpatient - Admit Certification Admit to Inpatient:: After my assessment, the patient will require hospitalization for at least two midnights. This is because of the severity of symptoms shown, intensity of services needed, and/or the medical risk in this patient being treated as an outpatient. - InPatient: Physician Admission Certification: I certify that this patient requires 2 or more midnights of care for the following reason:: After my assessment, the patient will require hospitalization for at least two midnights. This is because of the severity of symptoms shown, intensity of services needed, and/or the medical risk in this patient being treated as an outpatient. - . Bed Request Type: Telemetry Admitting Physician: Ifeoma Hood Patient Diagnosis: Chest pain, NSTEMI (non-ST elevated myocardial infarction)
[2018-05-08 21:26] LABS: BASO # 0.1 K/uL (0.0-0.2); EOS # 0.4 K/uL (0.0-0.7); EOS % 3.5 % (0.0-4.0); HEMOGLOBIN 13.8 g/dL (12.0-18.0); LYMPH # 2.6 K/uL (1.0-4.3); MEAN CELL VOLUME 88.1 fL (80.0-94.0); MEAN CORPUSCULAR HEMOGLOBIN 30.3 pg (27.0-31.0); MEAN CORPUSCULAR HGB CONC 34.4 g/dL (33.0-37.0); MEAN PLATELET VOLUME 8.2 fL (7.2-11.7); MONO # 1.2 K/uL (0.0-0.8); MONO % 11.2 % (0.0-10.0); NEUT # 6.4 K/uL (1.8-7.0); NEUT % 60.3 % (50.0-75.0); NRBC % 0.1 % (0.0-2.0); RBC 4.57 Mil/uL (4.40-5.90); RED CELL DISTRIBUTION WIDTH 13.6 % (11.5-14.5); WHITE BLOOD COUNT 10.6 K/uL (4.8-10.8)
[2018-05-08] MEDS ORDERED: Iodixanol 320 MG/ML 100 ML BOTTLE IV ONE (21:28)
[2018-05-08 21:37] LABS: PROTHROMBIN TIME 11.3 SECONDS (9.7-12.2)
[2018-05-08 21:39] LABS: ALB/GLOB RATIO 1.6 (1.0-2.1); ALBUMIN 4.5 g/dL (3.5-5.0); ALT/SGPT 34 U/L (21-72); AST/SGOT 32 U/L (17-59); BLOOD UREA NITROGEN 15 mg/dL (9-20); CALCIUM 9.3 mg/dl (8.6-10.4); GFR AFRICAN-AMERICAN > 60; GFR NON-AFRICAN AMERICAN > 60
[2018-05-09 03:23] LABS: CK-MB 2.03 ng/mL (0.0-3.38)
[2018-05-09 03:24] LABS: TROPONIN I 0.293 ng/mL (0.00-0.120)
[2018-05-09] MEDS ORDERED: Sodium Chloride 0.9% 1,000 ML ONE (04:44)
--- NOTE | 2018-05-09 08:36 | RAD ---
PROCEDURE: CHEST RADIOGRAPH, 1 VIEW HISTORY: chest pain COMPARISON: 09/29/2017. FINDINGS: LUNGS: The lungs are hyperinflated and there is peribronchial thickening with chronic changes in both lungs. No focal consolidation. PLEURA: No pneumothorax or pleural fluid seen. CARDIOVASCULAR: Normal. OSSEOUS STRUCTURES: No significant abnormalities. VISUALIZED UPPER ABDOMEN: Normal. OTHER FINDINGS: None. IMPRESSION: No active pulmonary disease. COPD.
--- NOTE | 2018-05-09 10:10 | CT ---
PROCEDURE: CT Angiography Chest, Abdomen and Pelvis with and without intravenous contrast HISTORY: Chest pain COMPARISON: None. TECHNIQUE: Contiguous axial images of the chest, abdomen and pelvis were obtained in the phase of aortic enhancement. A noncontrast enhanced CT of the chest was also obtained to evaluate for possible intramural thrombus. Coronal and sagittal reformats were generated. IV dose administered: 100 mL Visipaque Radiation dose: Total exam DLP = 1776.44 mGy-cm. This CT exam was performed using one or more of the following dose reduction techniques: Automated exposure control, adjustment of the mA and/or kV according to patient size, and/or use of iterative reconstruction technique. FINDINGS: CT ANGIOGRAPHY OF THE CHEST WITH & WITHOUT CONTRAST: AORTA (CHEST AND ABDOMEN): The thoracic and abdominal aorta are unremarkable, without aneurysm, dissection or rupture. No intramural thrombus identified in the thoracic aorta on the non-contrast ct of the chest. The celiac axis, superior mesenteric artery, inferior mesenteric artery and the renal arteries are widely patent. There are separate origins of the celiac axis and superior mesenteric artery off the aorta. There are 2 renal arteries on each side. The pelvic arteries are unremarkable. LUNGS: The lungs are well inflated and clear. No nodule, mass or consolidation. MEDIASTINUM: The heart is normal in size. No pericardial effusion. Normal caliber aorta and pulmonary arterial trunk. No aortic dissection. Normal size heart. LYMPH NODES: No pathologic mediastinal or hilar lymphadenopathy. PLEURA: No pneumothorax. No pleural fluid. BONES: Within normal limits for the patient's age. OTHER FINDINGS: None. CT ANGIOGRAPHY OF THE ABDOMEN AND PELVIS WITH CONTRAST: LIVER: Normal in size with homogeneous enhancement. No gross lesion or ductal dilatation. GALLBLADDER AND BILE DUCTS: No calcified gallstones. PANCREAS: Normal in size with homogeneous enhancement. No gross lesion or ductal dilatation. SPLEEN: Normal in size with homogeneous enhancement. ADRENALS: No discrete nodule. KIDNEYS AND URETERS: Normal in size with homogeneous enhancement. No hydronephrosis. No solid mass. VASCULATURE: Unremarkable. No aortic aneurysm. STOMACH AND BOWEL: The small bowel loops are normal in caliber. There is large amount of stool in the colon and rectum. APPENDIX: Normal appendix. PERITONEUM: No free fluid. No free air. LYMPH NODES: No enlarged lymph nodes. PELVIS:: The urinary bladder is well distended and grossly normal in appearance. The prostate gland is enlarged with median lobe hypertrophy indenting on the base of the urinary bladder. BONES: No acute fracture. OTHER FINDINGS: There is a small sliding hiatal hernia. There are bilateral small fat containing inguinal hernias. There is a small fat containing umbilical hernia P IMPRESSION: 1. No CT evidence for aortic dissection, aortic aneurysm or pulmonary embolism. 2. Constipation. No evidence for bowel obstruction. A preliminary report was provided by [employer] [facility].
[2018-05-09 10:27] LABS: CK-MB 2.6 ng/mL (0.0-3.38); TROPONIN I 0.173 ng/mL (0.00-0.120)
[2018-05-09] MEDS ORDERED: Enoxaparin 80 mg Syringe SC ONE (12:45)
[2018-05-09] MEDS: Sodium Chloride 0.45% 1,000 ML IV SCH (14:01)
--- NOTE | 2018-05-09 15:09 | CP.PCM.CON ---
History of Present Illness - History of Present Illness History of Present Illness: Cardio consult for: chest pain with elevated troponins Patient is a 72 year old male with PMHx of [place] (2005), HTN, HLD, gluacoma, and sleep apnea who presented to the ER on 05/08/18 for chest pain. Patient explains that he had been having some chest discomfort for the past few days that came and went. The discomfort came on at rest and exertion. Yesterday evening patient was at rest when the chest discomfort lasted for an hour. Patient describes the discomfort like "indigestion" and as a moving pain across his chest radiating from the sternum to the left side. Patient says he also felt SOB , diaphoretic, nauseous, and weak at the time of the episode. Patient was especially concerned because he had an AL in 2003. Patient says this episode does not feel like his prior AL. Of note, patient says that for the past few weeks he is becoming short of breath with walking upstairs which has never occurred in the past. Currently, patient has no chest pain or discomfort. Patient also denies headache, dizziness, abdominal pain, nausea, vomiting, constipation, or diarrhea. PMD: Dr. Alejandro PMHx: HTN, HLD, [place] (2005), L eye glaucoma, sleep apnea PSHx: Stent placed (2005), R eye laser surgery, lipoma removal (2007), rare skin CA removed (1997) FamHx: Sister had stent placement age 50s ( of lung CA at 61), father had multiple CVAs ( at 79) SocHx: Patient smoked for 15 pack years (quit 20 years ago), gave up ETOH 20 years ago, and denied using illicit drugs. 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 Review of Systems - Constitutional Constitutional: Fatigue, Lethargy. absent: Chills - EENT Eyes: absent: Change in Vision - Cardiovascular Cardiovascular: Chest Pain, Chest Pain at Rest, Chest Pain with Activity. absent: Palpitations - Respiratory Respiratory: Dyspnea on Exertion - Gastrointestinal Gastrointestinal: absent: Abdominal Pain, Constipation, Diarrhea, Nausea, Vomiting - Genitourinary Genitourinary: absent: Difficulty Urinating, Dysuria, Hematuria - Musculoskeletal Musculoskeletal: absent: Numbness, Tingling - Integumentary Integumentary: absent: Rash Past Patient History - Infectious Disease Hx of Infectious Diseases: None - Past Medical History & Family History Past Medical History?: Yes - Past Social History Smoking Status: Never Smoked - CARDIAC Hx Hypercholesterolemia: Yes Hx Hypertension: Yes - PULMONARY Hx Sleep Apnea: Yes - INTEGUMENTARY Other/Comment: Skin cancer rt. shoulder, surgically removed - MUSCULOSKELETAL/RHEUMATOLOGICAL Hx Falls: No - PSYCHIATRIC Hx Depression: Yes Hx Substance Use: No - SURGICAL HISTORY Hx Cardiac Catheterization: Yes (X 1 STENT) Other/Comment: coronary stent x 1 - ANESTHESIA Hx Anesthesia: Yes Hx Anesthesia Reactions: No Meds Allergies/Adverse Reactions: Allergies Allergy/AdvReac Type Severity Reaction Status Date / Time No Known Allergies Allergy Verified 05/09/18 06:56 - Medications Medications: Current Medications Amlodipine Besylate (Norvasc) 10 mg PO DAILY [facility] Last Admin: 05/09/18 12:44 Dose: 10 mg Aspirin (Aspirin Chewable) 81 mg PO DAILY [facility] Clopidogrel Bisulfate (Plavix) 75 mg PO DAILY [facility] Last Admin: 05/09/18 12:44 Dose: 75 mg Famotidine (Pepcid) 20 mg PO BID [facility] Sodium Chloride (Sodium Chloride 0.45%) 1,000 mls @ 80 mls/hr IV .[id number] [facility] Stop: 05/10/18 23:59 Last Admin: 05/09/18 14:01 Dose: 80 mls/hr Rosuvastatin Calcium (Crestor) 20 mg PO [facility] Physical Exam - Constitutional Appears: Non-toxic, No Acute Distress - Head Exam Head Exam: ATRAUMATIC, NORMAL INSPECTION, NORMOCEPHALIC - Eye Exam Eye Exam: EOMI, Normal appearance - ENT Exam ENT Exam: Mucous Membranes Moist - Respiratory Exam Respiratory Exam: Clear to Auscultation Bilateral, NORMAL BREATHING PATTERN - Cardiovascular Exam Cardiovascular Exam: REGULAR RHYTHM, RRR, +S1, +S2 - GI/Abdominal Exam GI & Abdominal Exam: Normal Bowel Sounds, Soft. absent: Distended, Firm, Tenderness - Extremities Exam Extremities exam: Positive for: normal inspection. Negative for: pedal edema, tenderness - Back Exam Back exam: NORMAL INSPECTION - Neurological Exam Neurological exam: Alert, Oriented x3 - Psychiatric Exam Psychiatric exam: Normal Affect, Normal Mood - Skin Skin Exam: Intact, Normal Color, Warm Results - Vital Signs Recent Vital Signs: Last Vital Signs Temp 97.9 F 05/09/18 08:32 Pulse 61 05/09/18 08:32 Resp 18 05/09/18 08:32 BP 168/91 H 05/09/18 08:32 Pulse Ox 98 05/09/18 08:32 - Labs Result Diagrams: 05/08/18 21:14 05/08/18 21:14 Labs: Laboratory Results - last 24 hr 05/08/18 05/08/18 05/08/18 21:14 21:14 21:23 WBC 10.6 RBC 4.57 Hgb 13.8 Hct 40.3 MCV 88.1 MCH 30.3 MCHC 34.4 RDW 13.6 Plt Count 239 MPV 8.2 Neut % (Auto) 60.3 Lymph % (Auto) 24.0 [place] % (Auto) 11.2 H Eos % (Auto) 3.5 Baso % (Auto) 1.0 Neut # (Auto) 6.4 Lymph # (Auto) 2.6 [place] # (Auto) 1.2 H Eos # (Auto) 0.4 Baso # (Auto) 0.1 PT 11.3 INR 1.0 APTT 32 Sodium 143 Potassium 3.8 Chloride 103 Carbon Dioxide 27 Anion Gap 16 BUN 15 Creatinine 0.8 Est GFR ( Amer) > 60 Est GFR (Non-Af Amer) > 60 POC Glucose (mg/dL) Random Glucose 95 Calcium 9.3 Total Bilirubin 0.6 AST 32 ALT 34 Alkaline Phosphatase 95 Total Creatine Kinase CK-MB (Mass) Troponin I < 0.0120 NT-Pro-B Natriuret Pep Total Protein 7.3 Albumin 4.5 Globulin 2.8 Albumin/Globulin Ratio 1.6 05/08/18 05/09/18 05/09/18 21:23 02:49 07:19 WBC RBC Hgb Hct MCV MCH MCHC RDW Plt Count MPV Neut % (Auto) Lymph % (Auto) [place] % (Auto) Eos % (Auto) Baso % (Auto) Neut # (Auto) Lymph # (Auto) [place] # (Auto) Eos # (Auto) Baso # (Auto) PT INR APTT Sodium Potassium Chloride Carbon Dioxide Anion Gap BUN Creatinine Est GFR ( Amer) Est GFR (Non-Af Amer) POC Glucose (mg/dL) 103 Random Glucose Calcium Total Bilirubin AST ALT Alkaline Phosphatase Total Creatine Kinase 82 CK-MB (Mass) 2.03 Troponin I 0.2930 H* NT-Pro-B Natriuret Pep 139 Total Protein Albumin Globulin Albumin/Globulin Ratio 05/09/18 05/09/18 09:04 11:30 WBC RBC Hgb Hct MCV MCH MCHC RDW Plt Count MPV Neut % (Auto) Lymph % (Auto) [place] % (Auto) Eos % (Auto) Baso % (Auto) Neut # (Auto) Lymph # (Auto) [place] # (Auto) Eos # (Auto) Baso # (Auto) PT INR APTT Sodium Potassium Chloride Carbon Dioxide Anion Gap BUN Creatinine Est GFR ( Amer) Est GFR (Non-Af Amer) POC Glucose (mg/dL) 111 H Random Glucose Calcium Total Bilirubin AST ALT Alkaline Phosphatase Total Creatine Kinase 97 CK-MB (Mass) 2.60 Troponin I 0.1730 H* NT-Pro-B Natriuret Pep Total Protein Albumin Globulin Albumin/Globulin Ratio Assessment & Plan - Assessment and Plan (Free Text) Assessment: Chest pain CTA: no evidence for aortic dissection, aortic aneurysm or pulmonary embolism EKG: HR: 57, RBBB ECHO ordered Troponin I: <.0120--> .2930 --> .1730 1 dose of Brilinta 180mg given in ED 1 dose Aspirin 325g given in ED Meds: Aspirin 81 mg po daily Plavix 75mg po daily Crestor 20mg po HS Amlodipine 10mg po daily Patient for cardiac cath tonight with Dr. Dhillon HTN Amlodipine 10mg po daily HLD Crestor 20mg po hs
--- NOTE | 2018-05-09 17:37 | CP.PCM.CON ---
History of Present Illness - History of Present Illness History of Present Illness: INFECTIOUS DISEASE/MED CONSULTATION CINDY MANRIQUEZ MD, FACP 6T [id number] 05/09/2018 CHART REVIEWED PT EXAMINED CASE DISCUSSED WITH ER/HOUSE FELLOW Patient is a 72 year old male with PMHx of [place] (2005), HTN, HLD, gluacoma, and sleep apnea who presented to the ER on 05/08/18 for chest pain. Patient explains that he had been having some chest discomfort for the past few days that came and went. The discomfort came on at rest and exertion. Yesterday evening patient was at rest when the chest discomfort lasted for an hour. Patient describes the discomfort like "indigestion" and as a moving pain across his chest radiating from the sternum to the left side. Patient says he also felt SOB , diaphoretic, nauseous, and weak at the time of the episode. Patient was especially concerned because he had an [place] in 2003. Patient says this episode does not feel like his prior [place]. Of note, patient says that for the past few weeks he is becoming short of breath with walking upstairs which has never occurred in the past. Currently, patient has no chest pain or discomfort. Patient also denies headache, dizziness, abdominal pain, nausea, vomiting, constipation, or diarrhea. PMD: PMHx: HTN, HLD, [place] (2005), L eye glaucoma, sleep apnea PSHx: Stent placed (2005), R eye laser surgery, lipoma removal (2007), rare skin CA removed (1997) FamHx: Sister had stent placement age 50s ( of lung CA at 61), father had multiple CVAs ( at 79) SocHx: Patient smoked for 15 pack years (quit 20 years ago), gave up ETOH 20 years ago, and denied using illicit drugs. 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 Review of Systems - Constitutional Constitutional: Fatigue, Lethargy. absent: Chills - EENT Eyes: absent: Change in Vision - Cardiovascular Cardiovascular: Chest Pain, Chest Pain at Rest, Chest Pain with Activity. absent: Palpitations - Respiratory Respiratory: Dyspnea on Exertion - Gastrointestinal Gastrointestinal: absent: Abdominal Pain, Constipation, Diarrhea, Nausea, Vomiting - Genitourinary Genitourinary: absent: Difficulty Urinating, Dysuria, Hematuria - Musculoskeletal Musculoskeletal: absent: Numbness, Tingling - Integumentary Integumentary: absent: Rash Past Patient History - Infectious Disease Hx of Infectious Diseases: None - Past Medical History & Family History Past Medical History?: Yes - Past Social History Smoking Status: Never Smoked - CARDIAC Hx Hypercholesterolemia: Yes Hx Hypertension: Yes - PULMONARY Hx Sleep Apnea: Yes - INTEGUMENTARY Other/Comment: Skin cancer rt. shoulder, surgically removed - MUSCULOSKELETAL/RHEUMATOLOGICAL Hx Falls: No - PSYCHIATRIC Hx Depression: Yes Hx Substance Use: No - SURGICAL HISTORY Hx Cardiac Catheterization: Yes (X 1 STENT) Other/Comment: coronary stent x 1 - ANESTHESIA Hx Anesthesia: Yes Hx Anesthesia Reactions: No Meds Allergies/Adverse Reactions: Allergies Allergy/AdvReac Type Severity Reaction Status Date / Time No Known Allergies Allergy Verified 05/09/18 06:56 - Medications Medications: Current Medications Amlodipine Besylate (Norvasc) 10 mg PO DAILY [facility] Last Admin: 05/09/18 12:44 Dose: 10 mg Aspirin (Aspirin Chewable) 81 mg PO DAILY [facility] Clopidogrel Bisulfate (Plavix) 75 mg PO DAILY [facility] Last Admin: 05/09/18 12:44 Dose: 75 mg Famotidine (Pepcid) 20 mg PO BID [facility] Sodium Chloride (Sodium Chloride 0.45%) 1,000 mls @ 80 mls/hr IV .[id number] [facility] Stop: 05/10/18 23:59 Last Admin: 05/09/18 14:01 Dose: 80 mls/hr Rosuvastatin Calcium (Crestor) 20 mg PO [facility] Physical Exam - Constitutional Appears: Non-toxic, No Acute Distress - Head Exam Head Exam: ATRAUMATIC, NORMAL INSPECTION, NORMOCEPHALIC - Eye Exam Eye Exam: EOMI, Normal appearance - ENT Exam ENT Exam: Mucous Membranes Moist - Respiratory Exam Respiratory Exam: Clear to Auscultation Bilateral, NORMAL BREATHING PATTERN - Cardiovascular Exam Cardiovascular Exam: REGULAR RHYTHM, RRR, +S1, +S2 - GI/Abdominal Exam GI & Abdominal Exam: Normal Bowel Sounds, Soft. absent: Distended, Firm, Tenderness - Extremities Exam Extremities exam: Positive for: normal inspection. Negative for: pedal edema, tenderness - Back Exam Back exam: NORMAL INSPECTION - Neurological Exam Neurological exam: Alert, Oriented x3 - Psychiatric Exam Psychiatric exam: Normal Affect, Normal Mood - Skin Skin Exam: Intact, Normal Color, Warm Results - Vital Signs Recent Vital Signs: Last Vital Signs Temp 97.9 F 05/09/18 08:32 Pulse 61 05/09/18 08:32 Resp 18 05/09/18 08:32 BP 168/91 H 05/09/18 08:32 Pulse Ox 98 05/09/18 08:32 - Labs Result Diagrams: 05/08/18 21:14 05/08/18 21:14 Labs: Laboratory Results - last 24 hr 05/08/18 05/08/18 05/08/18 21:14 21:14 21:23 WBC 10.6 RBC 4.57 Hgb 13.8 Hct 40.3 MCV 88.1 MCH 30.3 MCHC 34.4 RDW 13.6 Plt Count 239 MPV 8.2 Neut % (Auto) 60.3 Lymph % (Auto) 24.0 [place] % (Auto) 11.2 H Eos % (Auto) 3.5 Baso % (Auto) 1.0 Neut # (Auto) 6.4 Lymph # (Auto) 2.6 [place] # (Auto) 1.2 H Eos # (Auto) 0.4 Baso # (Auto) 0.1 PT 11.3 INR 1.0 APTT 32 Sodium 143 Potassium 3.8 Chloride 103 Carbon Dioxide 27 Anion Gap 16 BUN 15 Creatinine 0.8 Est GFR ( Amer) > 60 Est GFR (Non-Af Amer) > 60 POC Glucose (mg/dL) Random Glucose 95 Calcium 9.3 Total Bilirubin 0.6 AST 32 ALT 34 Alkaline Phosphatase 95 Total Creatine Kinase CK-MB (Mass) Troponin I < 0.0120 NT-Pro-B Natriuret Pep Total Protein 7.3 Albumin 4.5 Globulin 2.8 Albumin/Globulin Ratio 1.6 05/08/18 05/09/18 05/09/18 21:23 02:49 07:19 WBC RBC Hgb Hct MCV MCH MCHC RDW Plt Count MPV Neut % (Auto) Lymph % (Auto) [place] % (Auto) Eos % (Auto) Baso % (Auto) Neut # (Auto) Lymph # (Auto) [place] # (Auto) Eos # (Auto) Baso # (Auto) PT INR APTT Sodium Potassium Chloride Carbon Dioxide Anion Gap BUN Creatinine Est GFR ( Amer) Est GFR (Non-Af Amer) POC Glucose (mg/dL) 103 Random Glucose Calcium Total Bilirubin AST ALT Alkaline Phosphatase Total Creatine Kinase 82 CK-MB (Mass) 2.03 Troponin I 0.2930 H* NT-Pro-B Natriuret Pep 139 Total Protein Albumin Globulin Albumin/Globulin Ratio 05/09/18 05/09/18 09:04 11:30 WBC RBC Hgb Hct MCV MCH MCHC RDW Plt Count MPV Neut % (Auto) Lymph % (Auto) [place] % (Auto) Eos % (Auto) Baso % (Auto) Neut # (Auto) Lymph # (Auto) [place] # (Auto) Eos # (Auto) Baso # (Auto) PT INR APTT Sodium Potassium Chloride Carbon Dioxide Anion Gap BUN Creatinine Est GFR ( Amer) Est GFR (Non-Af Amer) POC Glucose (mg/dL) 111 H Random Glucose Calcium Total Bilirubin AST ALT Alkaline Phosphatase Total Creatine Kinase 97 CK-MB (Mass) 2.60 Troponin I 0.1730 H* NT-Pro-B Natriuret Pep Total Protein Albumin Globulin Albumin/Globulin Ratio Assessment & Plan - Assessment and Plan (Free Text) Assessment: Chest pain CTA: no evidence for aortic dissection, aortic aneurysm or pulmonary embolism EKG: HR: 57, RBBB ECHO ordered Troponin I: <.0120--> .2930 --> .1730 1 dose of Brilinta 180mg given in ED 1 dose Aspirin 325g given in ED Meds: Aspirin 81 mg po daily Plavix 75mg po daily Crestor 20mg po HS Amlodipine 10mg po daily Patient for cardiac cath tonight with Dr. Dhillon HTN Amlodipine 10mg po daily HLD Crestor 20mg po hs Past Patient History - Infectious Disease Hx of Infectious Diseases: None - Past Medical History & Family History Past Medical History?: Yes - Past Social History Smoking Status: Never Smoked - CARDIAC Hx Hypercholesterolemia: Yes Hx Hypertension: Yes - PULMONARY Hx Sleep Apnea: Yes - INTEGUMENTARY Other/Comment: Skin cancer rt. shoulder, surgically removed - MUSCULOSKELETAL/RHEUMATOLOGICAL Hx Falls: No - PSYCHIATRIC Hx Depression: Yes Hx Substance Use: No - SURGICAL HISTORY Hx Cardiac Catheterization: Yes (X 1 STENT) Other/Comment: coronary stent x 1 - ANESTHESIA Hx Anesthesia: Yes Hx Anesthesia Reactions: No Meds Allergies/Adverse Reactions: Allergies Allergy/AdvReac Type Severity Reaction Status Date / Time No Known Allergies Allergy Verified 05/09/18 06:56 - Medications Medications: Current Medications Amlodipine Besylate (Norvasc) 10 mg PO DAILY [facility] Last Admin: 05/09/18 12:44 Dose: 10 mg Aspirin (Aspirin Chewable) 81 mg PO DAILY [facility] Clopidogrel Bisulfate (Plavix) 75 mg PO DAILY [facility] Last Admin: 05/09/18 12:44 Dose: 75 mg Famotidine (Pepcid) 20 mg PO BID [facility] Sodium Chloride (Sodium Chloride 0.45%) 1,000 mls @ 80 mls/hr IV .[id number] [facility] Stop: 05/10/18 23:59 Last Admin: 05/09/18 14:01 Dose: 80 mls/hr Rosuvastatin Calcium (Crestor) 20 mg PO [facility] Results - Vital Signs Recent Vital Signs: Last Vital Signs Temp 97.9 F 05/09/18 15:06 Pulse 53 L 05/09/18 15:06 Resp 20 05/09/18 15:06 BP 130/77 05/09/18 15:06 Pulse Ox 98 05/09/18 15:06 - Labs Result Diagrams: 05/08/18 21:14 05/08/18 21:14 Labs: Laboratory Results - last 24 hr 05/08/18 05/08/18 05/08/18 21:14 21:14 21:23 WBC 10.6 RBC 4.57 Hgb 13.8 Hct 40.3 MCV 88.1 MCH 30.3 MCHC 34.4 RDW 13.6 Plt Count 239 MPV 8.2 Neut % (Auto) 60.3 Lymph % (Auto) 24.0 [place] % (Auto) 11.2 H Eos % (Auto) 3.5 Baso % (Auto) 1.0 Neut # (Auto) 6.4 Lymph # (Auto) 2.6 [place] # (Auto) 1.2 H Eos # (Auto) 0.4 Baso # (Auto) 0.1 PT 11.3 INR 1.0 APTT 32 Sodium 143 Potassium 3.8 Chloride 103 Carbon Dioxide 27 Anion Gap 16 BUN 15 Creatinine 0.8 Est GFR ( Amer) > 60 Est GFR (Non-Af Amer) > 60 POC Glucose (mg/dL) Random Glucose 95 Calcium 9.3 Total Bilirubin 0.6 AST 32 ALT 34 Alkaline Phosphatase 95 Total Creatine Kinase CK-MB (Mass) Troponin I < 0.0120 NT-Pro-B Natriuret Pep Total Protein 7.3 Albumin 4.5 Globulin 2.8 Albumin/Globulin Ratio 1.6 05/08/18 05/09/18 05/09/18 21:23 02:49 07:19 WBC RBC Hgb Hct MCV MCH MCHC RDW Plt Count MPV Neut % (Auto) Lymph % (Auto) [place] % (Auto) Eos % (Auto) Baso % (Auto) Neut # (Auto) Lymph # (Auto) [place] # (Auto) Eos # (Auto) Baso # (Auto) PT INR APTT Sodium Potassium Chloride Carbon Dioxide Anion Gap BUN Creatinine Est GFR ( Amer) Est GFR (Non-Af Amer) POC Glucose (mg/dL) 103 Random Glucose Calcium Total Bilirubin AST ALT Alkaline Phosphatase Total Creatine Kinase 82 CK-MB (Mass) 2.03 Troponin I 0.2930 H* NT-Pro-B Natriuret Pep 139 Total Protein Albumin Globulin Albumin/Globulin Ratio 05/09/18 05/09/18 09:04 11:30 WBC RBC Hgb Hct MCV MCH MCHC RDW Plt Count MPV Neut % (Auto) Lymph % (Auto) [place] % (Auto) Eos % (Auto) Baso % (Auto) Neut # (Auto) Lymph # (Auto) [place] # (Auto) Eos # (Auto) Baso # (Auto) PT INR APTT Sodium Potassium Chloride Carbon Dioxide Anion Gap BUN Creatinine Est GFR ( Amer) Est GFR (Non-Af Amer) POC Glucose (mg/dL) 111 H Random Glucose Calcium Total Bilirubin AST ALT Alkaline Phosphatase Total Creatine Kinase 97 CK-MB (Mass) 2.60 Troponin I 0.1730 H* NT-Pro-B Natriuret Pep Total Protein Albumin Globulin Albumin/Globulin Ratio
[2018-05-09] MEDS ORDERED: Lidocaine 2% MPF (5 ml) Inj ONE (18:05)
[2018-05-09] MEDS ORDERED: Midazolam 2 MG/2 ML VIAL ONE (18:05)
[2018-05-09] MEDS ORDERED: Iodixanol 320 MG/ML 100 ML BOTTLE IV ONE (18:07)
[2018-05-09] MEDS ORDERED: Verapamil 2 ML ONE (18:37)
--- NOTE | 2018-05-09 20:12 | CP.PCM.PN ---
Subjective - Date & Time of Evaluation Date of Evaluation: 05/09/18 Time of Evaluation: 20:09 - Subjective Subjective: Patient s/p cath L Main: Patent LAD/Diags: Patent L cx/OM: patent RCA: Large, dominant artery med 99% sritical stenosis LV: EF 60%, No WMA, EDP 18 Plan: Lovenox 80sc bid ASA, Plavix, Statins and Oxygen\ GI prophylaxis Likely PCI at [place] this weekend Objective - Vital Signs/Intake and Output Vital Signs (last 24 hours): Temp Pulse Resp BP Pulse Ox 97.9 F 52 L 20 130/77 98 05/09/18 15:06 05/09/18 16:00 05/09/18 15:06 05/09/18 15:06 05/09/18 15:06 - Medications Medications: Current Medications Amlodipine Besylate (Norvasc) 10 mg PO DAILY [facility] Last Admin: 05/09/18 12:44 Dose: 10 mg Aspirin (Aspirin Chewable) 81 mg PO DAILY [facility] Clopidogrel Bisulfate (Plavix) 75 mg PO DAILY [facility] Last Admin: 05/09/18 12:44 Dose: 75 mg Enoxaparin Sodium (Lovenox) 80 mg SC Q12 [facility] Famotidine (Pepcid) 20 mg PO BID [facility] Last Admin: 05/09/18 18:21 Dose: Not Given Sodium Chloride (Sodium Chloride 0.45%) 1,000 mls @ 80 mls/hr IV .[id number] [facility] Stop: 05/10/18 23:59 Last Admin: 05/09/18 14:01 Dose: 80 mls/hr Rosuvastatin Calcium (Crestor) 20 mg PO HS [facility] - Labs Labs: 05/08/18 21:14 05/08/18 21:14 PT 11.3 SECONDS (9.7-12.2) 05/08/18 21:23 INR 1.0 05/08/18 21:23 APTT 32 SECONDS (21-34) 05/08/18 21:23
--- NOTE | 2018-05-09 22:18 | CP.PCM.HP ---
History of Present Illness - History of Present Illness History of Present Illness: Chief complaint: Chest pain HPI: 72-year-old male with history of CAD, stent in the past. High cholesterol, hypertension. Patient came to the emergency room with ongoing chest discomfort. According to the patient he was having pain on and off for quite long time, 8 months ago he was hospitalized, with the chest pain at the time. At the time patient was evaluated and sent home. Now he came to the emergency room last night with the ongoing pain, for last 1 week. Gradually got worse. But yesterday he started having some flutter-like sensation in the left side of the chest, at the left upper quadrant area of the abdomen. He was also feeling weak tired and dizzy. No sweating noted. He did not have any nausea, no vomiting noted, he did not have any fall Past medical history: CAD, status post a stent, hypertension, hypercholesterolemia, BPH. Surgical history include stent placement. No known drug allergy Family history: Father secondary to dementia at the age of 79 mother at the age of 79 with dementia also 1 sister had a history of lung cancer, CAD One brother also had a history of CAD. Social history: Patient quit smoking 25 years ago. Denies any alcohol. Drinks coffee daily. 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 Patient having now no chest pain. Comfortable No shortness of breath. No nausea vomiting No other major active systemic symptoms now On examination: Vital signs stable. Chest bilateral good air entry. Regular heart sound noted. BENEFITS CLERK alert awake oriented, no functional neurological deficit. No pedal edema Patient's labs reviewed Mild elevation of the troponin level noted. EKG nonspecific sinus rhythm noted. No ST-T changes noted Patient also had a chest x-ray, and also CT angiogram showing no evidence of any acute dissection, aneurysm, or PE. Constipation noted. Assessment and recommendation: 72-year-old male with a history of hypertension high cholesterol CAD status post a stent history of obstructive sleep apnea, lung nodules, ex-smoker now admitted with a non-ST elevation HI, currently on anticoagulation, antiplatelets. Patient will be getting the angiogram, and evaluation by tennis desk team member. We will continue the current monitoring. Patient heart rate is on the low side, will avoid beta-addie. DVT GI prophylaxis will follow the patient Present on Admission - Present on Admission Any Indicators Present on Admission: No History of DVT/PE: No History of Uncontrolled Diabetes: No Urinary Catheter: No Decubitus Ulcer Present: No Past Patient History - Infectious Disease Hx of Infectious Diseases: None - Past Medical History & Family History Past Medical History?: Yes - Past Social History Smoking Status: Never Smoked - CARDIAC Hx Hypercholesterolemia: Yes Hx Hypertension: Yes - PULMONARY Hx Sleep Apnea: Yes - INTEGUMENTARY Other/Comment: Skin cancer rt. shoulder, surgically removed - MUSCULOSKELETAL/RHEUMATOLOGICAL Hx Falls: No - PSYCHIATRIC Hx Depression: Yes Hx Substance Use: No - SURGICAL HISTORY Hx Cardiac Catheterization: Yes (X 1 STENT) Other/Comment: coronary stent x 1 - ANESTHESIA Hx Anesthesia: Yes Hx Anesthesia Reactions: No Meds Allergies/Adverse Reactions: Allergies Allergy/AdvReac Type Severity Reaction Status Date / Time No Known Allergies Allergy Verified 05/09/18 06:56 Results - Vital Signs Recent Vital Signs: Last Vital Signs Temp 98.1 F 05/09/18 21:15 Pulse 58 L 05/09/18 21:45 Resp 16 05/09/18 21:45 BP 137/77 05/09/18 21:45 Pulse Ox 98 05/09/18 15:06 - Labs Result Diagrams: 05/08/18 21:14 05/08/18 21:14 Labs: Laboratory Results - last 24 hr 05/09/18 05/09/18 05/09/18 02:49 07:19 09:04 POC Glucose (mg/dL) 103 Total Creatine Kinase 82 97 CK-MB (Mass) 2.03 2.60 Troponin I 0.2930 H* 0.1730 H* 05/09/18 11:30 POC Glucose (mg/dL) 111 H Total Creatine Kinase CK-MB (Mass) Troponin I
--- NOTE | 2018-05-09 22:30 | CP.PCM.CON ---
History of Present Illness - History of Present Illness History of Present Illness: Patient is a 72 year old male with PMHx of OR (2005), HTN, HLD, gluacoma, and sleep apnea who presented to the ER on 05/08/18 for chest pain, weakness and some sob on exertion. Upon w/u found to have mild elevation of toponin, and cath done today showed 99% stenosis in prior RCA stent. Patient upon direct questioning says that for the past few weeks he is becoming short of breath with walking upstairs which has never occurred in the past. Currently, patient has no chest pain or discomfort. Patient also denies headache, dizziness, abdominal pain, nausea, vomiting, constipation, or diarrhea. PMD: Dr. Alejandro PMHx: HTN, HLD, OR (2005), L eye glaucoma, sleep apnea PSHx: Stent placed (2005), R eye laser surgery, lipoma removal (2007), rare skin CA removed (1997) FamHx: Sister had stent placement age 50s ( of lung CA at 61), father had multiple CVAs ( at 79) SocHx: Patient smoked for 15 pack years (quit 20 years ago), gave up ETOH 20 years ago, and denied using illicit drugs. 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 Review of Systems - Review of Systems All systems: reviewed and no additional remarkable complaints except (HPI) Past Patient History - Infectious Disease Hx of Infectious Diseases: None - Past Medical History & Family History Past Medical History?: Yes - Past Social History Smoking Status: Former Smoker Alcohol: None Drugs: Denies Home Situation {Lives}: With Family Domestic Violence: Negative - CARDIAC Hx Hypercholesterolemia: Yes Hx Hypertension: Yes - PULMONARY Hx Sleep Apnea: Yes - INTEGUMENTARY Other/Comment: Skin cancer rt. shoulder, surgically removed - MUSCULOSKELETAL/RHEUMATOLOGICAL Hx Falls: No - PSYCHIATRIC Hx Depression: Yes Hx Substance Use: No - SURGICAL HISTORY Hx Cardiac Catheterization: Yes (X 1 STENT) Other/Comment: coronary stent x 1 - ANESTHESIA Hx Anesthesia: Yes Hx Anesthesia Reactions: No Meds Allergies/Adverse Reactions: Allergies Allergy/AdvReac Type Severity Reaction Status Date / Time No Known Allergies Allergy Verified 05/09/18 06:56 - Medications Medications: Current Medications Amlodipine Besylate (Norvasc) 10 mg PO DAILY [facility] Last Admin: 05/09/18 12:44 Dose: 10 mg Aspirin (Aspirin Chewable) 81 mg PO DAILY [facility] Enoxaparin Sodium (Lovenox) 80 mg SC Q12 [facility] Famotidine (Pepcid) 20 mg PO BID [facility] Last Admin: 05/09/18 18:21 Dose: Not Given Sodium Chloride (Sodium Chloride 0.45%) 1,000 mls @ 80 mls/hr IV .[id number] [facility] Stop: 05/10/18 23:59 Last Admin: 05/09/18 14:01 Dose: 80 mls/hr Rosuvastatin Calcium (Crestor) 20 mg PO [facility] Physical Exam - Additional Findings Additional findings: * HEENT MARY ELLEN * Neck supple * Chest Clear * CVS Regular, no gallop or murmur * PA soft, NT, BS present * Ext no edema, b/l peripheral pulses present, dressing on right radial site which was initial site of accesses, right groin site no swelling or oozing * Skin normal turgor * ORTHO/PROSTHETIC AIDE awake oriented x3 no fnd. Results - Vital Signs Recent Vital Signs: Last Vital Signs Temp 98.1 F 05/09/18 21:15 Pulse 58 L 05/09/18 21:45 Resp 16 05/09/18 21:45 BP 137/77 05/09/18 21:45 Pulse Ox 98 05/09/18 15:06 - Labs Result Diagrams: 05/08/18 21:14 05/08/18 21:14 Labs: Laboratory Results - last 24 hr 05/09/18 05/09/18 05/09/18 02:49 07:19 09:04 POC Glucose (mg/dL) 103 Total Creatine Kinase 82 97 CK-MB (Mass) 2.03 2.60 Troponin I 0.2930 H* 0.1730 H* 05/09/18 11:30 POC Glucose (mg/dL) 111 H Total Creatine Kinase CK-MB (Mass) Troponin I Assessment & Plan - Assessment and Plan (Free Text) Assessment: * NSTEMI tight RCA lession, but no active signs of ichemia at rest * CAD, HTN, h/glaucoma Plan: * Overnight observe in icu * likely cath in [place] * Dual antiplatelate, lovenox, avoid betablocker due to HR in range of bradycardia, statin * See orders for detail.
[2018-05-09] MEDS ORDERED: Enoxaparin 80 mg Syringe SC SCH (23:00)
--- NOTE | 2018-05-09 23:08 | CP.PCM.PN ---
Subjective - Date & Time of Evaluation Date of Evaluation: 05/09/18 Time of Evaluation: 23:06 - Subjective Subjective: Patient scheduled for PCI at 10am tomorrow in [place] Patient will come back 2 hours after the procedure to the same room Objective - Vital Signs/Intake and Output Vital Signs (last 24 hours): Temp Pulse Resp BP Pulse Ox 98.1 F 55 L 16 125/77 98 05/09/18 21:15 05/09/18 22:45 05/09/18 22:45 05/09/18 22:45 05/09/18 15:06 Intake and Output: 05/09/18 05/10/18 18:59 06:59 Intake Total 290 Output Total 300 Balance -10 - Medications Medications: Current Medications Amlodipine Besylate (Norvasc) 10 mg PO DAILY [facility] Last Admin: 05/09/18 12:44 Dose: 10 mg Aspirin (Aspirin Chewable) 81 mg PO DAILY [facility] Enoxaparin Sodium (Lovenox) 80 mg SC Q12 [facility] Last Admin: 05/09/18 22:46 Dose: 80 mg Famotidine (Pepcid) 20 mg PO BID [facility] Last Admin: 05/09/18 18:21 Dose: Not Given Sodium Chloride (Sodium Chloride 0.45%) 1,000 mls @ 80 mls/hr IV .[id number] [facility] Stop: 05/10/18 23:59 Last Admin: 05/09/18 14:01 Dose: 80 mls/hr Rosuvastatin Calcium (Crestor) 20 mg PO HS [facility] Last Admin: 05/09/18 22:46 Dose: 20 mg - Labs Labs: 05/08/18 21:14 05/08/18 21:14 PT 11.3 SECONDS (9.7-12.2) 05/08/18 21:23 INR 1.0 05/08/18 21:23 APTT 32 SECONDS (21-34) 05/08/18 21:23
[2018-05-10] MEDS: Sodium Chloride 0.45% 1,000 ML IV SCH ×3 (04:34→17:16)
[2018-05-10 06:20] LABS: BASO # 0.1 K/uL (0.0-0.2); BASO % 1.4 % (0.0-2.0); EOS # 0.2 K/uL (0.0-0.7); EOS % 2.4 % (0.0-4.0); HEMOGLOBIN 13.8 g/dL (12.0-18.0); LYMPH # 1.5 K/uL (1.0-4.3); MEAN CELL VOLUME 87.7 fL (80.0-94.0); MEAN CORPUSCULAR HEMOGLOBIN 30.7 pg (27.0-31.0); MEAN PLATELET VOLUME 8.1 fL (7.2-11.7); MONO # 0.9 K/uL (0.0-0.8); MONO % 9.4 % (0.0-10.0); NEUT # 6.7 K/uL (1.8-7.0); NEUT % 70.8 % (50.0-75.0); RBC 4.49 Mil/uL (4.40-5.90); RED CELL DISTRIBUTION WIDTH 13.7 % (11.5-14.5); WHITE BLOOD COUNT 9.5 K/uL (4.8-10.8)
[2018-05-10 06:28] LABS: BLOOD UREA NITROGEN 10 mg/dL (9-20); GFR AFRICAN-AMERICAN > 60; GFR NON-AFRICAN AMERICAN > 60
[2018-05-10 06:29] LABS: ALB/GLOB RATIO 1.6 (1.0-2.1); ALBUMIN 4.1 g/dL (3.5-5.0); ALT/SGPT 32 U/L (21-72); AST/SGOT 24 U/L (17-59); CALCIUM 8.4 mg/dl (8.6-10.4)
[2018-05-10 06:30] LABS: INR 1.1
[2018-05-10 06:47] LABS: CK-MB 2.44 ng/mL (0.0-3.38)
--- NOTE | 2018-05-10 09:07 | CARD ---
APPROVED REPORT EXAM: Two-dimensional and M-mode echocardiogram with Doppler and color Doppler. Other Information Quality : GoodRhythm : INDICATION Chest Pain Non STEMI RISK FACTORS Hypertension Hyperlipidemia 2D DIMENSIONS IVSd1.7 (0.7-1.1cm)Aortic Root (2D)3.5 (2.0-3.7cm) LVDd4.8 (3.9-5.9cm)PWd1.3 (0.7-1.1cm) LVDs3.3 (2.5-4.0cm)FS (%) 31.0 % LVEF (%)70.0 (>50%) M-Mode DIMENSIONS RVDd2.32 (2.1-3.2cm)Left Atrium (MM)4.58 (2.5-4.0cm) IVSd1.59 (0.7-1.1cm)Aortic Root3.20 (2.2-3.7cm) LVDd5.75 (4.0-5.6cm)Aortic Cusp Exc.2.28 (1.5-2.0cm) PWd1.07 (0.7-1.1cm)FS (%) 43 % LVDs3.28 (2.0-3.8cm)LVEF (%)73 (>50%) Mitral Valve MV E Vaazbnwe64.9cm/sMV A Dzbsigfd66.5cm/sE/A ratio1.3 TDI E/Lateral E'0.0E/Medial E'0.0 Tricuspid Valve TR Peak Roskezsd529ig/sTR Peak Gr.[id number] LEFT VENTRICLE The left ventricle is normal size. There is borderline to mild concentric left ventricular hypertrophy. The left ventricular systolic systolic function is normal. The left ventricular ejection fraction is within the normal range. Questionable borderline hypokinesis in the mid lateral wall otherwise normal wall motion. The left ventricular diastolic function is normal. RIGHT VENTRICLE The right ventricle is normal size. The right ventricular systolic function is normal. ATRIA The left atrial index is moderately increased The right atrium size is normal. AORTIC VALVE The aortic valve is normal in structure. No aortic regurgitation is present. There is no aortic valvular stenosis. MITRAL VALVE The mitral valve is normal in structure. Mitral regurgitation is mild. TRICUSPID VALVE The tricuspid valve is normal in structure. There is mild tricuspid regurgitation. Right ventricular systolic pressure is estimated at less than 30 mmHg. PULMONIC VALVE The pulmonary valve is normal in structure. There is mild pulmonic valvular regurgitation. GREAT VESSELS The aortic root is normal in size. The IVC is normal in size and collapses >50% with inspiration. PERICARDIAL EFFUSION There is no pericardial effusion. <Conclusion> There is borderline to mild concentric left ventricular hypertrophy. The left ventricular systolic systolic function is normal. Questionable borderline hypokinesis in the mid lateral wall otherwise normal wall motion. The right ventricular systolic function is normal. The left atrial index is moderately increased Mitral regurgitation is mild. There is mild tricuspid regurgitation. Right ventricular systolic pressure is estimated at less than 30 mmHg. There is no gross pericardial effusion.
--- NOTE | 2018-05-10 11:38 | CP.PCM.PN ---
Subjective - Date & Time of Evaluation Date of Evaluation: 05/10/18 Time of Evaluation: 11:36 - Subjective Subjective: Patient s/p RCA Drug eluting Stent placement IV Hydration ASA,. Plavix, Statins daily No Blockers or Brilinta due to bradycardia OOB to chair after 3pm today Resume diet ICU observation for today Check labs in am Groin care Objective - Vital Signs/Intake and Output Vital Signs (last 24 hours): Temp Pulse Resp BP Pulse Ox 97.7 F 51 L 11 L 115/72 97 05/10/18 08:00 05/10/18 09:00 05/10/18 09:00 05/10/18 09:00 05/10/18 09:00 Intake and Output: 05/10/18 05/10/18 06:59 18:59 Intake Total 890 160 Output Total 1350 Balance -460 160 - Medications Medications: Current Medications Amlodipine Besylate (Norvasc) 10 mg PO DAILY [facility] Last Admin: 05/09/18 12:44 Dose: 10 mg Aspirin (Aspirin Chewable) 81 mg PO DAILY [facility] Last Admin: 05/10/18 08:39 Dose: Not Given Clopidogrel Bisulfate (Plavix) 75 mg PO DAILY [facility] Enoxaparin Sodium (Lovenox) 40 mg SC DAILY [facility] Famotidine (Pepcid) 20 mg PO BID [facility] Last Admin: 05/09/18 18:21 Dose: Not Given Sodium Chloride (Sodium Chloride 0.45%) 1,000 mls @ 80 mls/hr IV .[id number] [facility] Stop: 05/10/18 23:59 Last Admin: 05/10/18 04:34 Dose: Not Given Rosuvastatin Calcium (Crestor) 20 mg PO HS [facility] Last Admin: 05/09/18 22:46 Dose: 20 mg - Labs Labs: 05/10/18 06:12 05/10/18 06:12 PT 12.0 SECONDS (9.7-12.2) 05/10/18 06:12 INR 1.1 05/10/18 06:12 APTT 43 SECONDS (21-34) H D 05/10/18 06:12
--- NOTE | 2018-05-10 15:48 | CP.PCM.PN ---
Subjective - Date & Time of Evaluation Date of Evaluation: 05/10/18 Time of Evaluation: 15:47 - Subjective Subjective: Patient today underwent PCI. PCI for RCA was done. Patient tolerated the procedure well. Successful opening of the RCA noted. Spoke to the student development dean. Currently doing well as per cardiology Patient will be transferred to [facility] again, he will be monitored at 24 hours. Possible discharge plan after that Objective - Vital Signs/Intake and Output Vital Signs (last 24 hours): Temp Pulse Resp BP Pulse Ox 97.7 F 51 L 11 L 115/72 97 05/10/18 08:00 05/10/18 09:00 05/10/18 09:00 05/10/18 09:00 05/10/18 09:00 Intake and Output: 05/10/18 05/10/18 06:59 18:59 Intake Total 890 160 Output Total 1350 Balance -460 160 - Medications Medications: Current Medications Acetaminophen (Tylenol 325mg Tab) 650 mg PO Q6 PRN PRN Reason: Pain, Mild (1-3) Amlodipine Besylate (Norvasc) 10 mg PO DAILY [facility] Last Admin: 05/10/18 14:21 Dose: Not Given Aspirin (Aspirin Chewable) 81 mg PO DAILY [facility] Last Admin: 05/10/18 11:43 Dose: Not Given Clopidogrel Bisulfate (Plavix) 75 mg PO DAILY [facility] Enoxaparin Sodium (Lovenox) 40 mg SC DAILY [facility] Famotidine (Pepcid) 20 mg PO BID [facility] Last Admin: 05/10/18 11:43 Dose: Not Given Sodium Chloride (Sodium Chloride 0.45%) 1,000 mls @ 80 mls/hr IV .[id number] [facility] Stop: 05/10/18 23:59 Last Admin: 05/10/18 04:34 Dose: Not Given Rosuvastatin Calcium (Crestor) 20 mg PO HS [facility] Last Admin: 05/09/18 22:46 Dose: 20 mg - Labs Labs: 05/10/18 06:12 05/10/18 06:12 PT 12.0 SECONDS (9.7-12.2) 05/10/18 06:12 INR 1.1 05/10/18 06:12 APTT 43 SECONDS (21-34) H D 05/10/18 06:12
--- NOTE | 2018-05-10 19:42 | CARDCATH ---
PROCEDURE DATE: 05/09/2018 PROCEDURES: 1. Left heart catheterization. 2. Coronary angiogram. REFERRING PHYSICIANS: 1. Yoli Arellano MD 2. Ifeoma Hood MD 3. Ciera Freed MD PERFORMING PHYSICIAN: Alvino Dhillon MD. CLINICAL INDICATIONS: 1. Chest pain. 2. Non-ST elevation myocardial infarction. 3. History of coronary artery disease and status post stent placement. 4. Hypertension. 5. Hyperlipidemia. BRIEF CLINICAL HISTORY: Brenton Waterman is a 72-year-old gentleman presented to the [facility] with chest pain, subsequently ruled in for non-ST elevation myocardial infarction. 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 After informed consent, the patient was prepped and draped in the usual sterile fashion. Originally, right radial artery access attempted; however, due to smaller caliber of the right radial artery, the access site switched to right groin. Lidocaine 2% was given in the right groin for local anesthesia. Using micropuncture technique, 6-Estonian sheath was introduced into right common femoral artery. JL4 6-Estonian diagnostic catheter engaged into left main coronary artery. Contrast injected and left coronary artery angiogram was done. Then, JR4 6-Estonian diagnostic catheter crossed into left ventricle across the aortic valve. Contrast injected and LV angiogram was done. JR4 6-Estonian diagnostic catheter engaged into right coronary artery. Contrast injected and right coronary angiogram was done. The patient tolerated the procedure well. Post-procedure, Mynx closure device deployed with good hemostasis. FINDINGS: 1. Left main coronary artery is patent. 2. LAD and diagonal branches are patent. 3. Left circumflex and obtuse marginal branches are patent. 4. Right coronary artery is dominant, mid right coronary artery has a 99% in-stent restenosis. 5. LV ejection fraction is approximately 50% severe. No wall motion abnormalities noted. ADP is 17. No gradient across the aortic valve. IMPRESSION: 1. Single-vessel critical coronary artery disease. 2. Normal left ventricular systolic function. The patient will be transferred to [facility] ICU for further management. Most likely, the patient will be transferred to [place] for coronary intervention of the right coronary artery. Alvino Dhillon MD
[2018-05-11 06:22] LABS: HEMOGLOBIN 12.9 g/dL (12.0-18.0); MEAN CORPUSCULAR HEMOGLOBIN 30.7 pg (27.0-31.0); MEAN CORPUSCULAR HGB CONC 34.5 g/dL (33.0-37.0); MEAN PLATELET VOLUME 8.4 fL (7.2-11.7); RBC 4.19 Mil/uL (4.40-5.90); RED CELL DISTRIBUTION WIDTH 13.6 % (11.5-14.5); WHITE BLOOD COUNT 10.9 K/uL (4.8-10.8)
[2018-05-11 06:40] LABS: ALB/GLOB RATIO 1.5 (1.0-2.1); ALBUMIN 3.8 g/dL (3.5-5.0); ALT/SGPT 32 U/L (21-72); AST/SGOT 27 U/L (17-59); BLOOD UREA NITROGEN 10 mg/dL (9-20); CALCIUM 8.9 mg/dl (8.6-10.4); GFR AFRICAN-AMERICAN > 60; GFR NON-AFRICAN AMERICAN > 60
[2018-05-11] MEDS ORDERED: Potassium Chloride 20 mEq/15 ml LIQ UD PO ONE (07:45)
[2018-05-11] MEDS ORDERED: Enoxaparin 40 mg Syringe SC SCH (10:00)
--- NOTE | 2018-05-11 10:52 | CP.PCM.PN ---
Subjective - Date & Time of Evaluation Date of Evaluation: 05/11/18 Time of Evaluation: 10:30 - Subjective Subjective: [place] feeling well, denies any chest pain, tolerating oral diet, no bleeding from femoral or radial site Objective - Vital Signs/Intake and Output Vital Signs (last 24 hours): Temp Pulse Resp BP Pulse Ox 97.6 F 68 18 139/83 99 05/11/18 08:00 05/11/18 09:00 05/11/18 09:00 05/11/18 08:49 05/11/18 08:45 Intake and Output: 05/11/18 05/11/18 06:59 18:59 Intake Total 1100 640 Output Total 1300 575 Balance -200 65 - Medications Medications: Current Medications Acetaminophen (Tylenol 325mg Tab) 650 mg PO Q6 PRN PRN Reason: Pain, Mild (1-3) Last Admin: 05/10/18 20:36 Dose: 650 mg Amlodipine Besylate (Norvasc) 10 mg PO DAILY [facility] Last Admin: 05/11/18 09:53 Dose: 10 mg Aspirin (Aspirin Chewable) 81 mg PO DAILY [facility] Last Admin: 05/11/18 09:53 Dose: 81 mg Clopidogrel Bisulfate (Plavix) 75 mg PO DAILY [facility] Last Admin: 05/11/18 09:53 Dose: 75 mg Enoxaparin Sodium (Lovenox) 40 mg SC DAILY [facility] Last Admin: 05/11/18 09:53 Dose: 40 mg Famotidine (Pepcid) 20 mg PO BID [facility] Last Admin: 05/11/18 09:53 Dose: 20 mg Rosuvastatin Calcium (Crestor) 20 mg PO [facility] Last Admin: 05/10/18 22:00 Dose: 20 mg - Labs Labs: 05/11/18 06:15 05/11/18 06:12 PT 12.0 SECONDS (9.7-12.2) 05/10/18 06:12 INR 1.1 05/10/18 06:12 APTT 43 SECONDS (21-34) H D 05/10/18 06:12 - Head Exam Head Exam: ATRAUMATIC, NORMAL INSPECTION - Respiratory Exam Respiratory Exam: NORMAL BREATHING PATTERN - Cardiovascular Exam Cardiovascular Exam: Bradycardia, +S1, +S2 - GI/Abdominal Exam GI & Abdominal Exam: Normal Bowel Sounds - Extremities Exam Extremities Exam: Normal Inspection Assessment and Plan - Assessment and Plan (Free Text) Assessment: NSTEMI: with h/o instent thrombosis: continue antiplatelet as per cardiologym check P2Y12, -EKG reveals chava with RBB -continue rx as per cardiology -Patient remains hemodynamically stable for tele
[2018-05-11 12:25] VITALS: TEMP 98.5
[2018-05-11 12:54] VITALS: O2SAT 100
[2018-05-11 16:08] VITALS: BP 121/65; PULSE 59; RESP 15
--- NOTE | 2018-05-11 17:32 | CP.PCM.DIS ---
Provider - Provider Date of Admission: 05/09/18 06:39 Attending physician: Ifeoma Hood MD Time Spent in preparation of Discharge (in minutes): 45 Hospital Course - Lab Results Lab Results: Micro Results 05/09/18 21:51 Nose MRSA Culture (Admit) - Final MRSA NOT DETECTED Most Recent Lab Values WBC 10.9 K/uL (4.8-10.8) H 05/11/18 06:15 RBC 4.19 Mil/uL (4.40-5.90) L 05/11/18 06:15 Hgb 12.9 g/dL (12.0-18.0) 05/11/18 06:15 Hct 37.3 % (35.0-51.0) 05/11/18 06:15 MCV 89.0 fL (80.0-94.0) 05/11/18 06:15 MCH 30.7 pg (27.0-31.0) 05/11/18 06:15 MCHC 34.5 g/dL (33.0-37.0) 05/11/18 06:15 RDW 13.6 % (11.5-14.5) 05/11/18 06:15 Plt Count 191 K/uL (130-400) 05/11/18 06:15 MPV 8.4 fL (7.2-11.7) 05/11/18 06:15 Neut % (Auto) 70.8 % (50.0-75.0) 05/10/18 06:12 Lymph % (Auto) 16.0 % (20.0-40.0) L 05/10/18 06:12 [place] % (Auto) 9.4 % (0.0-10.0) 05/10/18 06:12 Eos % (Auto) 2.4 % (0.0-4.0) 05/10/18 06:12 Baso % (Auto) 1.4 % (0.0-2.0) 05/10/18 06:12 Neut # (Auto) 6.7 K/uL (1.8-7.0) 05/10/18 06:12 Lymph # (Auto) 1.5 K/uL (1.0-4.3) 05/10/18 06:12 [place] # (Auto) 0.9 K/uL (0.0-0.8) H 05/10/18 06:12 Eos # (Auto) 0.2 K/uL (0.0-0.7) 05/10/18 06:12 Baso # (Auto) 0.1 K/uL (0.0-0.2) 05/10/18 06:12 PT 12.0 SECONDS (9.7-12.2) 05/10/18 06:12 INR 1.1 05/10/18 06:12 APTT 43 SECONDS (21-34) H D 05/10/18 06:12 Sodium 142 mmol/L (132-148) 05/11/18 06:12 Potassium 3.5 mmol/L (3.6-5.2) L 05/11/18 06:12 Chloride 106 mmol/L (98-107) 05/11/18 06:12 Carbon Dioxide 24 mmol/L (22-30) 05/11/18 06:12 Anion Gap 16 (10-20) 05/11/18 06:12 BUN 10 mg/dL (9-20) 05/11/18 06:12 Creatinine 0.7 mg/dL (0.8-1.5) L 05/11/18 06:12 Est GFR ( Amer) > 60 05/11/18 06:12 Est GFR (Non-Af Amer) > 60 05/11/18 06:12 POC Glucose (mg/dL) 111 mg/dL (65-110) H 05/09/18 11:30 Random Glucose 97 mg/dL (75-110) 05/11/18 06:12 Calcium 8.9 mg/dl (8.6-10.4) 05/11/18 06:12 Phosphorus 3.4 mg/dL (2.5-4.5) 05/11/18 06:12 Magnesium 1.8 mg/dL (1.6-2.3) 05/11/18 06:12 Total Bilirubin 0.8 mg/dL (0.2-1.3) 05/11/18 06:12 AST 27 U/L (17-59) 05/11/18 06:12 ALT 32 U/L (21-72) 05/11/18 06:12 Alkaline Phosphatase 83 U/L (38-126) 05/11/18 06:12 Total Creatine Kinase 82 U/L (55-170) 05/10/18 06:12 CK-MB (Mass) 2.44 ng/mL (0.0-3.38) 05/10/18 06:12 Troponin I 0.1300 ng/mL (0.00-0.120) H* 05/10/18 06:12 NT-Pro-B Natriuret Pep 139 pg/mL (0-900) 05/08/18 21:23 Total Protein 6.3 g/dL (6.3-8.3) 05/11/18 06:12 Albumin 3.8 g/dL (3.5-5.0) 05/11/18 06:12 Globulin 2.5 gm/dL (2.2-3.9) 05/11/18 06:12 Albumin/Globulin Ratio 1.5 (1.0-2.1) 05/11/18 06:12 - Hospital Course Hospital Course: Chief complaint: Chest pain HPI: 72-year-old male with history of CAD, stent in the past. High cholesterol, hypertension. Patient came to the emergency room with ongoing chest discomfort. According to the patient he was having pain on and off for quite long time, 8 months ago he was hospitalized, with the chest pain at the time. At the time patient was evaluated and sent home. Now he came to the emergency room last night with the ongoing pain, for last 1 week. Gradually got worse. But yesterday he started having some flutter-like sensation in the left side of the chest, at the left upper quadrant area of the abdomen. He was also feeling weak tired and dizzy. No sweating noted. He did not have any nausea, no vomiting noted, he did not have any fall Past medical history: CAD, status post a stent, hypertension, hypercholesterolemia, BPH. Surgical history include stent placement. No known drug allergy Family history: Father secondary to dementia at the age of 79 mother at the age of 79 with dementia also 1 sister had a history of lung cancer, CAD One brother also had a history of CAD. Social history: Patient quit smoking 25 years ago. Denies any alcohol. Drinks coffee daily. 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 Patient having now no chest pain. Comfortable No shortness of breath. No nausea vomiting No other major active systemic symptoms now On examination: Vital signs stable. Chest bilateral good air entry. Regular heart sound noted. INSIDE SALES LEAD alert awake oriented, no functional neurological deficit. No pedal edema Patient's labs reviewed Mild elevation of the troponin level noted. EKG nonspecific sinus rhythm noted. No ST-T changes noted Patient also had a chest x-ray, and also CT angiogram showing no evidence of any acute dissection, aneurysm, or PE. Constipation noted. Assessment and recommendation: 72-year-old male with a history of hypertension high cholesterol CAD status post a stent history of obstructive sleep apnea, lung nodules, ex-smoker now admitted with a non-ST elevation MO, currently on anticoagulation, antiplatelets. Patient will be getting the angiogram, and evaluation by medical engineer. We will continue the current monitoring. Patient heart rate is on the low side, will avoid beta-addie. DVT GI prophylaxis will follow the patient Course in the hospital: Patient initially monitored in the telemetry for cardiac enzymes. The troponin was mildly elevated. Patient was asymptomatic and no chest pain noted, except a mild bradycardia in the telemetry. Cardiology evaluation called. Patient underwent angiogram. 99% occlusion of the mid RCA noted on the angiogram. Patient was taken to [facility], and the patient underwent right RCA stenting done. No complication. Patient did well. Patient tolerated the procedure. Renal function is normal. Final diagnoses: Acute chest pain, non-ST elevation MO, mid RCA occlusion. Status post a stent. Patient will continue aspirin 81 mg, Plavix 75 mg, amlodipine 10 mg daily, simvastatin he will resume his home medications. He will follow-up with medical engineer, and also PMD. I spoke to the patient in detail. Medications reviewed and explained to the patient. I advised him to take rest. We will follow-up the patient as an outpatient Discharge Exam - Head Exam Head Exam: ATRAUMATIC, NORMAL INSPECTION Discharge Plan - Discharge Medications Prescriptions: metFORMIN [glucOPHAGE] 500 mg PO DAILY #30 tab amLODIPine [Norvasc] 10 mg PO DAILY #30 tab - Follow Up Plan Condition: FAIR Disposition: HOME/ ROUTINE Instructions: Heart Healthy Diet, Heart Attack (DC), Coronary Stenting (DC), Chest Pain (DC), Amlodipine, Aspirin, Clopidogrel, Metformin, Simvastatin, Going Home on Blood Thinners Referrals: Yoli Arellano MD [Staff Provider] - Ciera Freed MD [Staff Provider] - Ifeoma Hood MD [Staff Provider] -
--- NOTE | 2018-05-11 21:37 | CARD ---
APPROVED REPORT EKG Measurement Heart [id number] <Conclusion> Sinus bradycardia Left axis deviation Right bundle branch block Minimal voltage criteria for LVH, may be normal variant Abnormal ECG
--- NOTE | 2018-05-11 23:05 | CP.PCM.PN ---
Subjective - Date & Time of Evaluation Date of Evaluation: 05/11/18 Time of Evaluation: 12:10 - Subjective Subjective: Patient seen and evaluated S/P RCA stent Denies chest pain and dyspnea ambulating without issues Review of Systems - Constitutional Constitutional: Fatigue, Lethargy. absent: Chills - EENT Eyes: absent: Change in Vision - Cardiovascular Cardiovascular: Chest Pain, Chest Pain at Rest, Chest Pain with Activity. absent: Palpitations - Respiratory Respiratory: Dyspnea on Exertion - Gastrointestinal Gastrointestinal: absent: Abdominal Pain, Constipation, Diarrhea, Nausea, Vomiting - Genitourinary Genitourinary: absent: Difficulty Urinating, Dysuria, Hematuria - Musculoskeletal Musculoskeletal: absent: Numbness, Tingling - Integumentary Integumentary: absent: Rash Physical Exam - Constitutional Appears: Non-toxic, No Acute Distress - Head Exam Head Exam: ATRAUMATIC, NORMAL INSPECTION, NORMOCEPHALIC - Eye Exam Eye Exam: EOMI, Normal appearance - ENT Exam ENT Exam: Mucous Membranes Moist - Respiratory Exam Respiratory Exam: Clear to Auscultation Bilateral, NORMAL BREATHING PATTERN - Cardiovascular Exam Cardiovascular Exam: REGULAR RHYTHM, RRR, +S1, +S2 - GI/Abdominal Exam GI & Abdominal Exam: Normal Bowel Sounds, Soft. absent: Distended, Firm, Tenderness - Extremities Exam Extremities exam: Positive for: normal inspection. Negative for: pedal edema, tenderness - Back Exam Back exam: NORMAL INSPECTION - Neurological Exam Neurological exam: Alert, Oriented x3 - Psychiatric Exam Psychiatric exam: Normal Affect, Normal Mood - Skin Skin Exam: Intact, Normal Color, Warm Objective - Vital Signs/Intake and Output Vital Signs (last 24 hours): Temp Pulse Resp BP Pulse Ox 98.5 F 59 L 15 121/65 100 05/11/18 18:00 05/11/18 16:00 05/11/18 16:00 05/11/18 16:00 05/11/18 16:00 Intake and Output: 05/11/18 05/12/18 18:59 06:59 Intake Total 1120 Output Total 725 Balance 395 - Labs Labs: 05/11/18 06:15 05/11/18 06:12 PT 12.0 SECONDS (9.7-12.2) 05/10/18 06:12 INR 1.1 05/10/18 06:12 APTT 43 SECONDS (21-34) H D 05/10/18 06:12 Assessment and Plan - Assessment and Plan (Free Text) Assessment: 72-year-old male with a history of hypertension high cholesterol CAD status post a stent history of obstructive sleep apnea, lung nodules, ex-smoker now admitted with a non-ST elevation OH, currently on anticoagulation, antiplatelets. Patient underwent angiogram. 99% occlusion of the mid RCA noted on the angiogram. Patient was taken to [facility], and the patient underwent right RCA stenting done. No complication. Patient did well. Patient tolerated the procedure. Renal function is normal. Final diagnoses: Acute chest pain, non-ST elevation OH, mid RCA occlusion. Status post a stent. Patient will continue aspirin 81 mg, Plavix 75 mg, amlodipine 10 mg daily, simvastatin he will resume his home medications. He will follow-up with Dr. Freed, and also PMD in 1-2 weeks I spoke to the patient in detail. Medications reviewed and explained to the patient.
--- NOTE | 2018-05-12 16:32 | CARD ---
APPROVED REPORT EKG Measurement Heart [id number] <Conclusion> Sinus bradycardia Right bundle branch block Abnormal ECG
--- NOTE | 2018-05-12 21:27 | CARD ---
APPROVED REPORT EKG Measurement Heart [id number] [place] [id number] <Conclusion> Sinus bradycardia Right bundle branch block Abnormal ECG
== END 2018-05-11 18:45 | disposition home or self-care (01) | DRG 281 ==
LOC: C.ER 20:52 → SUPCPDRO 20:52 → C.ER 05-09 06:00 → C.9E 05-09 06:39 → C.6T 05-09 08:18 → C.9I 05-09 20:09
PROVIDERS: ADMIT Internal Medicine; ATTEND Internal Medicine
PROC: 4A023N7 Measurement of Cardiac Sampling and Pressure, Left Heart, Percutaneous Approach (ICD-10-PCS; principal; 2018-05-09)
PROC: B211YZZ Fluoroscopy of Multiple Coronary Arteries using Other Contrast (ICD-10-PCS; 2018-05-09)
PROC: B215YZZ Fluoroscopy of Left Heart using Other Contrast (ICD-10-PCS; 2018-05-09)
DX: I21.4 Non-ST elevation (NSTEMI) myocardial infarction (principal); T82.855A Stenosis of coronary artery stent, initial encounter; E78.00 Pure hypercholesterolemia, unspecified; G47.33 Obstructive sleep apnea (adult) (pediatric); I25.10 Atherosclerotic heart disease of native coronary artery without angina pectoris; I45.10 Unspecified right bundle-branch block; N40.0 Benign prostatic hyperplasia without lower urinary tract symptoms; Y83.1 Surgical operation with implant of artificial internal device as the cause of abnormal reaction of the patient, or of later complication, without mention of misadventure at the time of the procedure; I25.2 Old myocardial infarction; I10 Essential (primary) hypertension; H40.9 Unspecified glaucoma; Z87.891 Personal history of nicotine dependence; Z85.828 Personal history of other malignant neoplasm of skin

== ENCOUNTER 2018-06-01 22:55 | Emergency (ER) | payer MEDICARE ==
--- NOTE | 2018-06-01 23:53 | C.PDOC ---
History Of Present Illness 72 y/o male presents to the ER after having a panic attack this afternoon. Patient has been off of his medication, Lexapro, for two days. He denies any suicidal or homicidal ideations. Patient has no other medical complaints at this time. Time Seen by Provider: 06/01/18 23:40 Chief Complaint (Nursing): Psychiatric Evaluation History Per: Patient History/Exam Limitations: no limitations Onset/Duration Of Symptoms: Hrs Current Symptoms Are (Timing): Still Present Past Medical History Vital Signs: Last Vital Signs Temp 97.7 F 06/02/18 03:19 Pulse 72 06/02/18 03:19 Resp 18 06/02/18 03:19 BP 134/85 06/02/18 03:19 Pulse Ox 95 06/02/18 03:19 - Medical History PMH: Anxiety, Depression, HTN, Hypercholesterolemia, Sleep Apnea Other PMH: Skin cancer Other Surgeries: Shoulder surgically removed 15 years ago and coronary stent - [facility] Procedures FLUOROSCOPY OF LEFT HEART USING OTHER CONTRAST (05/09/18) FLUOROSCOPY OF MULTIPLE CORONARY ARTERIES USING OTH CONTRAST (05/09/18) MEASURE OF CARDIAC SAMPL & PRESSURE, L HEART, PERC APPROACH (05/09/18) Family History: States: Unknown Family Hx - Social History Hx Alcohol Use: No Hx Substance Use: No - Immunization History Hx Tetanus Toxoid Vaccination: No Hx Influenza Vaccination: No Hx Pneumococcal Vaccination: No Review Of Systems Except As Marked, All Systems Reviewed And Found Negative. Constitutional: Negative for: Fever, Chills Psych: Negative for: Suicidal ideation, Other (Homicidal Ideation) Physical Exam - Physical Exam Appears: Non-toxic, No Acute Distress Skin: Normal Color, Warm, Dry Head: Atraumatic, Normacephalic Eye(s): bilateral: Normal Inspection, PERRL, EOMI Ear(s): Bilateral: Normal Oral Mucosa: Moist Neck: Normal ROM, Supple Chest: Symmetrical Cardiovascular: Rhythm Regular Gastrointestinal/Abdominal: Normal Exam, Soft, No Tenderness Extremity: Normal ROM Extremity: Bilateral: Normal Color And Temperature, Normal ROM Pulses: Left Dorsalis Pedis: Normal, Right Dorsalis Pedis: Normal Neurological/Psych: Oriented x3 Gait: Steady ED Course And Treatment - Laboratory Results Result Diagrams: 06/02/18 00:10 06/02/18 00:10 O2 Sat by Pulse Oximetry: 98 (RA) Pulse Ox Interpretation: Normal Medical Decision Making Medical Decision Making: Impression: 72 y/o male presents to the ER after experiencing panic attack Plan: --Alcohol Serum --CMP --Drug screen --CBC --UA Disposition Discussed With DrTino: Alis Finney Counseled Patient/Family Regarding: Diagnosis - Disposition Referrals: [facility] [Outside] Disposition: HOME/ ROUTINE Disposition Time: 05:37 Condition: STABLE Prescriptions: Escitalopram [Lexapro] 20 mg PO DAILY #3 tab Instructions: Depression Forms: [employer] (Guatemalan) - POA Present On Arrival: None - Clinical Impression Clinical Impression: Depressive disorder - Scribe Statement The provider has reviewed the documentation as recorded by the Scribe (Vivien Burr) Provider Attestation: All medical record entries made by the Scribe were at my direction and personally dictated by me. I have reviewed the chart and agree that the record accurately reflects my personal performance of the history, physical exam, medical decision making, and the department course for this patient. I have also personally directed, reviewed, and agree with the discharge instructions and disposition.
[2018-06-02 00:18] LABS: BASO # 0.1 K/uL (0.0-0.2); BASO % 1.2 % (0.0-2.0); EOS # 0.4 K/uL (0.0-0.7); EOS % 3.6 % (0.0-4.0); HEMOGLOBIN 13.5 g/dL (12.0-18.0); LYMPH # 1.9 K/uL (1.0-4.3); LYMPH % 17.1 % (20.0-40.0); MEAN CORPUSCULAR HEMOGLOBIN 30.9 pg (27.0-31.0); MEAN CORPUSCULAR HGB CONC 35.1 g/dL (33.0-37.0); MEAN PLATELET VOLUME 8.5 fL (7.2-11.7); MONO # 1.2 K/uL (0.0-0.8); MONO % 11.2 % (0.0-10.0); NEUT # 7.4 K/uL (1.8-7.0); NEUT % 66.9 % (50.0-75.0); RBC 4.37 Mil/uL (4.40-5.90); RED CELL DISTRIBUTION WIDTH 13.5 % (11.5-14.5)
[2018-06-02 00:44] LABS: ALB/GLOB RATIO 1.9 (1.0-2.1); ALBUMIN 4.5 g/dL (3.5-5.0); ALT/SGPT 28 U/L (21-72); AST/SGOT 23 U/L (17-59); BLOOD UREA NITROGEN 19 mg/dL (9-20); CALCIUM 9.2 mg/dl (8.6-10.4); GFR AFRICAN-AMERICAN > 60; GFR NON-AFRICAN AMERICAN > 60
[2018-06-02 00:51] LABS: BARBITURATES, UR NEGATIVE (NEGATIVE); BENZODIAZEPINES, UR NEGATIVE (NEGATIVE); OPIATES, UR NEGATIVE (NEGATIVE); PHENCYCLIDINE, UR NEGATIVE (NEGATIVE); URINE BILIRUBIN NEGATIVE (NEGATIVE); URINE BLOOD 1+ (NEGATIVE); URINE CALCIUM OXALATE CRYSTALS OCC /hpf (<OCC); URINE CLARITY Hazy (Clear); URINE COLOR Yellow (YELLOW); URINE GLUCOSE (UA) NORMAL (Normal); URINE LEUKOCYTE ESTERASE TRACE Leu/uL (Negative); URINE PROTEIN NEGATIVE (NEGATIVE); URINE UROBILINOGEN NORMAL mg/dL (0.2-1.0)
[2018-06-02 05:40] VITALS: O2SAT 98
[2018-06-02 05:44] VITALS: BP 129/75; PULSE 60; RESP 16; TEMP 97.8
== END 2018-06-02 06:17 | disposition home or self-care (01) ==
LOC: C.ER 22:55
DX: F32.9 Major depressive disorder, single episode, unspecified (principal)
CPT/HCPCS: 80053; 81001; 85025; 87086; 99284; G0480

== ENCOUNTER 2018-10-02 06:50 | Day surgery (SDC) | payer MEDICARE ==
[2018-10-02 07:24] VITALS: BMI 26.0
[2018-10-02 07:46] VITALS: TEMP 98.4
[2018-10-02] MEDS ORDERED: Lactated Ringer's 500 ML IV ONE ×2 (08:00)
[2018-10-02] MEDS ORDERED: Propofol 10 mg/ml Inj (20 ML) ONE ×2 (08:17→08:18)
--- NOTE | 2018-10-02 08:26 | CP.SDSHP ---
Same Day Surgery H & P - History Proposed Procedure: colonosocpy Pre-Op Diagnosis: screening - Previous Medical/Surgical History Cardiac: Hypertension, ASHD/CAD - Allergies Allergies: Allergies No Known Allergies Allergy (Verified 10/02/18 07:24) - Physical Exam Vital Signs: Vital Signs 10/02/18 10/02/18 07:36 07:54 Temperature 98.4 F Pulse Rate 69 69 Respiratory 20 Rate Blood Pressure 144/91 H O2 Sat by Pulse 100 Oximetry Mental Status: Alert & Oriented x3 Neuro: WNL Heart: WNL Lungs: WNL GI: WNL - {Optional Preform as Required} Abdomen: WNL - Impression Impression: screening Pt. Evaluated Today:Candidate for Anesthesia & Procedure: Yes - Date & Time Date: 10/02/18 Time: 08:00 Short Stay Discharge - Short Stay Discharge Admitting Diagnosis/Reason for Visit: ENCOUNTER FOR SCREENING FOR MALIGNANT NEOPLASM OF Disposition: HOME/ ROUTINE
[2018-10-02 10:45] VITALS: BP 122/71; PULSE 55; RESP 15; O2SAT 99
== END 2018-10-02 10:15 | disposition home or self-care (01) ==
LOC: C.ENDO 06:50
PROVIDERS: ATTEND Internal Medicine Gastroenterology
DX: Z12.11 Encounter for screening for malignant neoplasm of colon (principal); D12.3 Benign neoplasm of transverse colon; K57.90 Diverticulosis of intestine, part unspecified, without perforation or abscess without bleeding
CPT/HCPCS: 45378; 82948; J2704; J7120